=== PATIENT | male | born 1955 | race Caucasian/White ===

== ENCOUNTER 2017-03-03 20:30 | Emergency (ER) | payer OTHER, MEDICARE ==
[~2017-03-03] VITALS: Ht 175.3 cm; Wt 111.1 kg
[~2017-03-03 20:30] MED LIST: BRVIN INH; BUDE0.253 INH; DOXA8TAB2 PO; ESOM20CA PO; FLUT0.15; GABA600T PO; HYDR-3983 PO; MOME100A INH; MONT1TAB3 PO; SERT50TA PO; ZOLP5TAB PO
[2017-03-03 20:36] VITALS: TEMP 36.7; Ht 175.3 cm; Wt 111.1 kg
[2017-03-03] MEDS ORDERED: SODIUM CHLORIDE 0.9% 1000ML 1,000 ML IV STA (21:13)
--- NOTE | 2017-03-03 21:15 | EMERGENCY ROOM VISIT NOTE ---
History Report prepared by Dewayne: Jigar Sauer Under the Supervision of: Dr. Kendrick Jon M.D. First contact with patient: 20:41 Chief Complaint: FLANK PAIN Stated Complaint: PAIN IN R SIDE History of Present Illness The patient is a 62 year old male who presents to the Emergency Room with complaints of bilateral flank pain that began 1 month ago. He states that this pain is intermittently sharp and ache-like. At its worst, the pain is an 8/10 in severity. He says that this pain happens 10 times a day and is worse when he eats. The pain radiates to the right and left upper quadrant of his abdomen as well. The only thing that has helped his pain is Vicodin. He has also been having diarrhea and constipation during this month as well. He denies any calf pain, hematemesis, hematuria, hematochezia, or abnormal urinary symptoms. He was prescribed Erythromycin two days ago secondary to a lung infection. He had a normal chest x-ray on this day as well. He receives 120 [place] once a month. His last fill was on February 08, 2017. Source of History: patient Onset: 1 month ago Position: back (bilateral flank) Symptom Intensity: 8/10 Quality: ache, sharp Timing: intermittent Modifying Factors (Worsening): eating Modifying Factors (Relieving): other (Vicodin) Associated Symptoms: + abdominal pain (Bilateral upper quadrant), + diarrhea , No hematochezia, No melena, No urinary symptoms Review of Systems See HPI for pertinent positives & negatives. A total of 10 systems reviewed and were otherwise negative. Past Medical & Surgical Medical Problems: (1) Arthritis (2) Black lung (3) COPD (chronic obstructive pulmonary disease) (4) HTN (hypertension) Family History Patient reports no known family medical history. Social History Smoking Status: Former Smoker Alcohol Use: other Marital Status: Housing Status: lives alone Occupation Status: disabled Current/Historical Medications Scheduled Doxazosin Mesylate (Cardura), 8 MG PO DAILY Esomeprazole Magnesium (Nexium), 20 MG PO DAILY Gabapentin (Neurontin), 600 MG PO TID Mometasone Furoate-Formoterol (Dulera 100/5 Mcg), 2 PUFFS INH BID Zolpidem Tartrate (Ambien), 5 MG PO HS Scheduled PRN Hydrocodone/Acetaminophen 7.5MG/325MG ([place] 7.5MG/325MG), 1 TAB PO Q6H PRN for Pain Allergies Coded Allergies: Amoxicillin (Verified Allergy, Unknown, ITCHING, 09/07/15) Clarithromycin (Verified Allergy, Unknown, ITCHING, 09/07/15) Homatropine (Verified Allergy, Unknown, ITCHING, 09/07/15) Hydrocodone (Verified Allergy, Unknown, ITCHING, 09/07/15) Morphine (Verified Allergy, Unknown, ITCHING, 09/07/15) Penicillins (Verified Allergy, Unknown, ., 09/07/15) Physical Exam Vital Signs Date Time Temp Pulse Resp B/P Pulse Ox O2 Delivery O2 Flow Rate FiO2 03/03/17 23:30 76 18 117/86 94 03/03/17 22:24 75 20 130/85 95 Room Air 03/03/17 20:36 36.7 97 19 138/76 93 Room Air Physical Exam GENERAL: Patient is uncomfortable appearing and in mild acute distress. HEENT: No acute trauma, normocephalic atraumatic, mucous membranes moist, no nasal congestion, no scleral icterus. NECK: No stridor, no adenopathy, no meningismus, trachea is midline. LUNGS: No dyspnea. Clear to auscultation and equal bilaterally. No wheeze, no rhonchi. HEART: Regular rate and rhythm. No murmurs, rubs, gallops appreciated. ABDOMEN: Soft, tenderness to palpation of the RUQ, bowel sounds positive, no masses appreciated, no peritonitis. BACK: No midline tenderness, no CVA tenderness EXTREMITIES: Normal motion all extremities, no cyanosis, no edema. NEUROLOGIC: Alert and oriented, no acute motor or sensory deficits, no focal weakness, cranial nerves grossly intact. SKIN: No rash, no jaundice, no diaphoresis. Medical Decision & Procedures ER Provider Diagnostic Interpretation: Radiology results and stated below per my review and radiologist interpretation: ABDOMEN AND PELVIS CT WITH IV CONTRAST CT DOSE: 1084.98 mGy.cm HISTORY: RUQ abdominal pain TECHNIQUE: Multiaxial CT images of the abdomen and pelvis were performed following the use of intravenous contrast. COMPARISON STUDY: None. FINDINGS: Patchy densities within the bilateral lower lobes posteriorly. No pneumoperitoneum. No pneumatosis. Bilateral L5 spondylolysis. No fractures within the visualized osseous structures. Small fat-containing umbilical hernia. The liver, gallbladder, spleen, adrenal glands, kidneys, and pancreas are unremarkable. No retroperitoneal lymphadenopathy. Normal bladder. No bowel wall thickening or obstruction. Colonic diverticulosis. Normal appendix. IMPRESSION: 1. No bowel wall thickening or obstruction. 2. Normal appendix. 3. No hydronephrosis or renal stones. 4. Patchy densities within the bilateral lower lobes posteriorly. These are nonspecific but favor atelectasis rather than pneumonia. 5. Small fat-containing umbilical hernia. Electronically signed by: Carter Rayo M.D. 03/03/2017 11:00 PM Dictated Date/Time: 03/03/2017 10:47 PM Laboratory Results 03/03/17 21:15 Red Blood Count 4.82, Mean Corpuscular Volume 90.5, Mean Corpuscular Hemoglobin 31.3, Mean Corpuscular Hemoglobin Concent 34.6, Mean Platelet Volume 10.0, Neutrophils (%) (Auto) 59.8, Lymphocytes (%) (Auto) 31.5, Monocytes (%) (Auto) 7.0, Eosinophils (%) (Auto) 1.1, Basophils (%) (Auto) 0.3, Neutrophils # (Auto) 6.96, Lymphocytes # (Auto) 3.67, Monocytes # (Auto) 0.81, Eosinophils # (Auto) 0.13, Basophils # (Auto) 0.03 03/03/17 21:15 Test 03/03/17 21:15 03/03/17 22:15 White Blood Count 11.64 K/uL (4.8-10.8) Red Blood Count 4.82 M/uL (4.7-6.1) Hemoglobin 15.1 g/dL (14.0-18.0) Hematocrit 43.6 % (42-52) Mean Corpuscular Volume 90.5 fL (80-100) Mean Corpuscular Hemoglobin 31.3 pg (25-34) Mean Corpuscular Hemoglobin Concent 34.6 g/dl (32-36) Platelet Count 275 K/uL (130-400) Mean Platelet Volume 10.0 fL (7.4-10.4) Neutrophils (%) (Auto) 59.8 % Lymphocytes (%) (Auto) 31.5 % Monocytes (%) (Auto) 7.0 % Eosinophils (%) (Auto) 1.1 % Basophils (%) (Auto) 0.3 % Neutrophils # (Auto) 6.96 K/uL (1.4-6.5) Lymphocytes # (Auto) 3.67 K/uL (1.2-3.4) Monocytes # (Auto) 0.81 K/uL (0.11-0.59) Eosinophils # (Auto) 0.13 K/uL (0-0.5) Basophils # (Auto) 0.03 K/uL (0-0.2) RDW Standard Deviation 46.8 fL (36.4-46.3) RDW Coefficient of Variation 14.2 % (11.5-14.5) Immature Granulocyte % (Auto) 0.3 % Immature Granulocyte # (Auto) 0.04 K/uL (0.00-0.02) Anion Gap 9.0 mmol/L (3-11) Est Creatinine Clear Calc Drug Dose 83.4 ml/min Estimated GFR () 81.8 Estimated GFR (Non- 70.6 BUN/Creatinine Ratio 16.9 (10-20) Calcium Level 8.4 mg/dl (8.5-10.1) Total Bilirubin 0.2 mg/dl (0.2-1) Direct Bilirubin mg/dl (0-0.2) Aspartate Amino Transf (AST/SGOT) 15 U/L (15-37) Alanine Aminotransferase (ALT/SGPT) 29 U/L (12-78) Alkaline Phosphatase 136 U/L (45-117) Total Protein 6.7 gm/dl (6.4-8.2) Albumin 3.7 gm/dl (3.4-5.0) Lipase 141 U/L (73-393) Chemistry Specimen Hemolysis Urine Color YELLOW Urine Appearance CLEAR (CLEAR) Urine pH 5.5 (4.5-7.5) Urine Specific [place] 1.018 (1.000-1.030) Urine Protein NEG (NEG) Urine Glucose (UA) NEG (NEG) Urine Ketones NEG (NEG) Urine Occult Blood 1+ (NEG) Urine Nitrite NEG (NEG) Urine Bilirubin NEG (NEG) Urine Urobilinogen NEG (NEG) Urine Leukocyte Esterase NEG (NEG) Urine WBC (Auto) 0 /hpf (0-5) Urine RBC (Auto) 0-4 /hpf (0-4) Urine Hyaline Casts (Auto) 0 /lpf (0-5) Urine Epithelial Cells (Auto) 0-5 /lpf (0-5) Urine Bacteria (Auto) NEG (NEG) Laboratory results as reviewed by me. Medications Administered Medications (Trade) Dose Ordered Sig/Betzaida Route Start Time Stop Time Status Last Admin Dose Admin Sodium Chloride (Nss 1000ml) 1,000 ml @ 999 mls/hr Q1H1M STAT IV 03/03/17 21:13 03/03/17 22:13 DC 03/03/17 21:27 999 MLS/HR Miscellaneous Medication (Gi Cocktail) 24 ml NOW STAT PO 03/03/17 23:15 03/03/17 23:17 DC 03/03/17 23:15 24 ML Ranitidine HCl (zANTac SYRUP) 150 mg NOW ONCE PO 03/03/17 23:15 03/03/17 23:17 DC 03/03/17 23:22 150 MG ED Course 2040: The patient was evaluated in room B2. A complete history and physical exam was performed. 2112: Ordered Sodium Chloride 1000 ml @ 999 mls/hr IV 5: Ordered Ranitidine HCl 150 mg PO, GI Cocktail 24 ml PO 2316: The patient informed me that he was prescribed Prednisone two weeks ago and Naproxen recently when his pain started. He also notes some redness to his stool, but he does not think it is blood. I offered to do a rectal exam to check , and he declined. I also offered to evaluate him as an inpatient, and he declined. He informed me that he drinks large amounts of mineral oil every day. 2319: I discussed with the patient that he should use omeprazole twice daily for the next week, and to follow up with PCP. 2325: Ordered Lidocaine HCl 20 ml .ROUTE, Maalox Susp 30 ml .ROUTE 2328: Reevaluated the patient. Discussed results and discharge instructions: He verbalized understanding and agreement. The patient is ready for discharge. Medical Decision Differential: Cholecystitis, Gallbladder disfunction, Hepatic Disfunction, Gastritis/PUD, Pancreatitis, ACS, Aortic Pathology, amongst other pathologies entertained. 62 yr old male with epigastric abdominal pain that radiates to RUQ and sometimes LUQ over alst few weeks. Started after prednisone doses and starting naproxen. Notes history of gastric issues in past. CT abdo done given persistent symptoms and was unremarkable. No evidence of infection by work-up. Admits red stools though does no allow rectal exam. Suspect he has ulcer though with normal BP and normal HgB I do not feel I have to make him stay vs AMA. He states he will call PCP and follow up as soon as possible to discuss further options. He is on prilosec thus advised doing BID for a week. Discussed he can always return if worsening or other concerns. Stable at discharge. Impression Primary Impression: Epigastric abdominal pain Scribe Attestation The scribe's documentation has been prepared under my direction and personally reviewed by me in its entirety. I confirm that the note above accurately reflects all work, treatment, procedures, and medical decision making performed by me. Departure Information Dispostion Home / Self-Care Referrals Shannan Ventura M.D. (PCP) Forms HOME CARE DOCUMENTATION FORM, IMPORTANT VISIT INFORMATION Patient Instructions ED Epigastric Pain [facility] Additional Instructions Please follow up with your primary care provider in the next 24-48 hours to discuss further testing: HIDA scan, Endoscopy, Colonoscopy, etc.
[2017-03-03 21:26] LABS: BASO % 0.3 %; BASO ABS # 0.03 K/uL (0-0.2); COMPLETE YES; EOS % 1.1 %; HEMATOCRIT 43.6 % (42-52); IG% 0.3 %; LYMPH % 31.5 %; LYMPH ABS # 3.67 K/uL (1.2-3.4); MEAN CELL VOLUME 90.5 fL (80-100); MEAN CORPUSCULAR HEMOGLOBIN 31.3 pg (25-34); MEAN CORPUSCULAR HGB CONC 34.6 g/dl (32-36); NEUT % 59.8 %; PLATELET COUNT 275 K/uL (130-400); RED BLOOD COUNT 4.82 M/uL (4.7-6.1); WHITE BLOOD COUNT 11.64 K/uL (4.8-10.8)
[2017-03-03] MEDS ORDERED: OPTIRAY 320 IV PRN (21:30)
[2017-03-03 22:13] LABS: ALKALINE PHOSPHATASE 136 U/L (45-117); ALT/SGPT 29 U/L (12-78); AST/SGOT 15 U/L (15-37); BLOOD UREA NITROGEN 19 mg/dl (7-18); BUN/CREATININE RATIO 16.9 (10-20); CALCIUM 8.4 mg/dl (8.5-10.1); CARBON DIOXIDE 27 mmol/L (21-32); CHLORIDE 107 mmol/L (98-107); GLUCOSE 145 mg/dl (70-99); POTASSIUM 3.9 mmol/L (3.5-5.1); SODIUM 143 mmol/L (136-145)
[2017-03-03 22:45] LABS: URINE APPEARANCE CLEAR (CLEAR); URINE BILIRUBIN NEG (NEG); URINE COLOR YELLOW; URINE EPITHELIAL CELL AUTO 0-5 /lpf (0-5); URINE NITRITE NEG (NEG); URINE PH 5.5 (4.5-7.5); URINE SPECIFIC GRAVITY 1.018 (1.000-1.030); UROBILINOGEN NEG (NEG); ZZUR CULT IF INDIC CLEAN CATCH NO
[2017-03-03 22:48] LABS: MANUAL MICROSCOPIC REQUIRED? NO; REVIEW REQ? NO
--- NOTE | 2017-03-03 23:02 | DIAGNOSTIC IMAGING REPORT ---
ABDOMEN AND PELVIS CT WITH IV CONTRAST CT DOSE: 1084.98 mGy.cm HISTORY: RUQ abdominal pain TECHNIQUE: Multiaxial CT images of the abdomen and pelvis were performed following the use of intravenous contrast. COMPARISON STUDY: None. FINDINGS: Patchy densities within the bilateral lower lobes posteriorly. No pneumoperitoneum. No pneumatosis. Bilateral L5 spondylolysis. No fractures within the visualized osseous structures. Small fat-containing umbilical hernia. The liver, gallbladder, spleen, adrenal glands, kidneys, and pancreas are unremarkable. No retroperitoneal lymphadenopathy. Normal bladder. No bowel wall thickening or obstruction. Colonic diverticulosis. Normal appendix. IMPRESSION: 1. No bowel wall thickening or obstruction. 2. Normal appendix. 3. No hydronephrosis or renal stones. 4. Patchy densities within the bilateral lower lobes posteriorly. These are nonspecific but favor atelectasis rather than pneumonia. 5. Small fat-containing umbilical hernia. Electronically signed by: Carter Rayo M.D. 03/03/2017 11:00 PM Dictated Date/Time: 03/03/2017 10:47 PM
[2017-03-03] MEDS ORDERED: RANITIDINE HCL SYRUP 150 MG/10 ML UDC PO ONE (23:15)
[2017-03-03] MEDS ORDERED: GI COCKTAIL PO STA (23:15)
[2017-03-03] MEDS ORDERED: ALUMINUM/MAGNESIUM SUSP 30 ML UDC ONE (23:25)
[2017-03-03] MEDS ORDERED: LIDOCAINE HCL 2% VISC SOLN 20 ML UDC ONE (23:25)
[2017-03-03 23:30] VITALS: BP 117/86; PULSE 76; O2SAT 94
[2017-04-09] MEDS ORDERED: DOXY100C76 PO (15:21)
[2017-04-09] MEDS ORDERED: ARFO15NE INH (15:21)
[2017-04-09] MEDS ORDERED: ALBUAER INH (15:21)
[2017-04-09] MEDS ORDERED: OMEP40CA41 PO (15:21)
[2017-04-09] MEDS ORDERED: PLMINSR5 INH (15:21)
== END 2017-03-03 23:32 | disposition home or self-care (01) ==
LOC: C.EDB 20:30
DX: R10.13 Epigastric pain (principal); J44.9 Chronic obstructive pulmonary disease, unspecified; I10 Essential (primary) hypertension; Z87.891 Personal history of nicotine dependence; Z88.0 Allergy status to penicillin; Z88.1 Allergy status to other antibiotic agents; Z88.5 Allergy status to narcotic agent; R19.7 Diarrhea, unspecified

== ENCOUNTER → 2017-04-11 | Day surgery (SDC) | payer OTHER, MEDICARE ==
[2017-04-09 15:07] VITALS: Ht 175.3 cm; Wt 111.4 kg
[~2017-04-11] VITALS: Ht 175.3 cm; Wt 111.4 kg
[~2017-04-11] MED LIST changes: +ALBUAER INH; +ARFO15NE INH; -BRVIN INH; -BUDE0.253 INH; +DOXY100C76 PO; -ESOM20CA PO; -FLUT0.15; +KETAMINE HCL INJ 50 MG/ML 10 ML VIAL ONE; +LIDOCAINE HCL 2% 2 ML VIAL (20MG/ML) ONE; +MIDAZOLAM HCL 1 MG/ML 2ML VIAL ONE; -MONT1TAB3 PO; +OMEP40CA41 PO; +PLMINSR5 INH; +PROPOFOL IV EMULSION 10 MG/ML 20 ML VIAL IV ONE; -SERT50TA PO; +SODIUM CHLORIDE 0.9% 500ML 500 ML IV ONE
[2017-04-11 10:26] VITALS: TEMP 36.9
--- NOTE | 2017-04-11 10:54 | Endo History and Physical ---
History & Physical Date of Service: April 11, 2017. Chief Complaint: Diarrhea, Constipation Referring Physician: Shannan Ventura History of Present Illness Indigestion, abdominal pain, alternating diarrhea and constipation in patient with a history of polyps. Past Surgical History Hx Cardiac Surgery: No Hx Internal Defibrillator: No Hx Pacemaker: No Hx Abdominal Surgery: No Hx of Implantable Prosthesis: No Hx Post-Op Nausea and Vomiting: No Hx Cancer Surgery: No Hx Thoracic Surgery: No Hx Orthopedic: Yes (RT KNEE SX, RT ARM CLOSED REDUCTION) Hx Urinary Tract Surgery: No Family History IBD Social History Smoking Status: Former Smoker Hx Substance Use: Yes (SEE MED REC) Hx Alcohol Use: Yes (RARELY) Allergies Coded Allergies: Amoxicillin (Verified Allergy, Unknown, ITCHING, 04/09/17) Clarithromycin (Verified Allergy, Unknown, ITCHING, 04/09/17) Morphine (Verified Allergy, Unknown, ITCHING, 04/09/17) Penicillins (Verified Allergy, Unknown, RASH, 04/09/17) Current Medications Reported Home Medications Medications Dose Route/Sig Max Daily Dose Days Date Category Pulmicort Respules 0.5MG/2ML (Budesonide) 0.5 Mg/2 Ml Nebu 2 Ml INH BID PRN 04/09/17 Reported Brovana (Arformoterol Tartrate) 15 Mcg/2 Ml Neb 15 Mcg INH BID PRN 04/09/17 Reported Proventil Hfa (Albuterol Sulfate) 108 Mcg/Act Aer 2 Puff INH Q4H PRN 04/09/17 Reported Prilosec (Omeprazole) 40 Mg Cap 40 Mg PO QAM 04/09/17 Reported Monodox (Doxycycline Monohydrate) 100 Mg Cap 100 Mg PO QAM 04/09/17 Reported Ambien (Zolpidem Tartrate) 5 Mg Tab 5 Mg PO HS PRN 09/07/15 Reported [place] 7.5MG/325MG (Acetaminophen/Hydrocodone Bitart) Tab 1 Tab PO Q6H PRN 03/16/15 Reported Dulera 100/5 Mcg (Mometasone Furoate-Formoterol) 1 Aer Aer 2 Puffs INH BID 12/07/13 Reported Neurontin (Gabapentin) 600 Mg Tab 600 Mg PO TID 12/07/13 Reported Cardura (Doxazosin Mesylate) 8 Mg Tab 8 Mg PO HS 1/13/14 Reported Vital Signs Weight (Kilograms): 111.36 Height (Feet): 5 Height (Inches): 9 Date Time Temp Pulse Resp B/P Pulse Ox O2 Delivery O2 Flow Rate FiO2 04/11/17 10:26 36.9 79 18 151/80 96 Room Air Physical Exam General Appearance: WD/WN, no apparent distress, + obese Respiratory/Chest: Auscultation: breath sounds normal, no wheezing, no rales/crackles Cardiovascular: Heart Auscultation: RRR, no murmurs Abdomen: Inspection & Palpation: soft, no tenderness, guarding & rebound Assessment and Plan EGD and colonoscopy today.
--- NOTE | 2017-04-11 11:16 | GI REPORT ---
Procedure Date: 04/11/2017 10:20 AM Procedure: Upper GI endoscopy Indications: Abdominal pain, Diarrhea Medicines: Monitored Anesthesia Care Complications: No immediate complications. Estimated blood loss: None. Estimated Blood Loss: Estimated blood loss: none. Procedure: Pre-Anesthesia Assessment: - Prior to the procedure, a History and Physical was performed, and patient medications, allergies and sensitivities were reviewed. The patient's tolerance of previous anesthesia was reviewed. - ASA Grade Assessment: III - A patient with severe systemic disease. After obtaining informed consent, the endoscope was passed under direct vision. Throughout the procedure, the patient's blood pressure, pulse, and oxygen saturations were monitored continuously. The scope was introduced through the mouth, and advanced to the third part of the duodenum. Small bowel enteroscopy was deemed necessary. The upper GI endoscopy was accomplished with ease. The patient tolerated the procedure well. Findings: The upper third of the esophagus, middle third of the esophagus and lower third of the esophagus were normal. The Z-line was regular and was found 40 cm from the incisors. A small hiatus hernia was present. The entire examined stomach was normal. Biopsies were taken with a cold forceps for Helicobacter pylori testing. The examined duodenum was normal. Biopsies for histology were taken with a cold forceps for evaluation of celiac disease. Verification of patient identification for the specimens was done by the physician and nurse using the patient's name, date and medical record number. Impression: - Normal upper third of esophagus, middle third of esophagus and lower third of esophagus. - Z-line regular, 40 cm from the incisors. - Small hiatus hernia. - Normal stomach. Biopsied. - Normal examined duodenum. Biopsied. Recommendation: - Await pathology results. - Perform a colonoscopy today. Kiran Garcia M.D. Kiran Garcia MD 04/11/2017 11:15:57 AM This report has been signed electronically. Note Initiated On: 04/11/2017 10:20 AM I attest to the content of the Intraoperative Record and orders documented therein, exceptions below
--- NOTE | 2017-04-11 11:36 | GI REPORT ---
Procedure Date: 04/11/2017 10:20 AM Procedure: Colonoscopy Indications: High risk colon cancer surveillance: Personal history of colonic polyps, Incidental - Chronic diarrhea Medicines: Monitored Anesthesia Care Complications: No immediate complications. Estimated blood loss: None. Estimated Blood Loss: Estimated blood loss: none. Procedure: Pre-Anesthesia Assessment: - Prior to the procedure, a History and Physical was performed, and patient medications, allergies and sensitivities were reviewed. The patient's tolerance of previous anesthesia was reviewed. - ASA Grade Assessment: III - A patient with severe systemic disease. After I obtained informed consent, the scope was passed under direct vision. Throughout the procedure, the patient's blood pressure, pulse, and oxygen saturations were monitored continuously. The On-site loaner was introduced through the anus and advanced to the terminal ileum, with identification of the appendiceal orifice and IC valve. The colonoscopy was performed with ease. The patient tolerated the procedure well. The quality of the bowel preparation was good. The bowel preparation used was split dose MIralax. Findings: Multiple diverticula were found in the sigmoid colon. Normal mucosa was found in the entire colon. Biopsies for histology were taken with a cold forceps from the entire colon for evaluation of microscopic colitis. Verification of patient identification for the specimen was done by the physician and nurse using the patient's name, date and medical record number. Impression: - Diverticulosis in the sigmoid colon. - Normal mucosa in the entire examined colon. Biopsied. - The colon was otherwise normal to the terminal ileum with retroflexed views of the colon and terminal ileum. Recommendation: - Await pathology results. - Repeat colonoscopy in 5 years for screening purposes. - Discharge patient to home (with escort). Kiran Garcia M.D. Kiran Garcia MD 04/11/2017 11:36:26 AM This report has been signed electronically. Note Initiated On: 04/11/2017 10:20 AM I attest to the content of the Intraoperative Record and orders documented therein, exceptions below
--- NOTE | 2017-04-11 11:43 | Discharge Instructions ---
Endoscopy Patient Instructions Date / Procedure(s) Performed April 11, 2017. Colonoscopy, EGD Allergy Information Coded Allergies: Amoxicillin (Verified Allergy, Unknown, ITCHING, 04/09/17) Clarithromycin (Verified Allergy, Unknown, ITCHING, 04/09/17) Morphine (Verified Allergy, Unknown, ITCHING, 04/09/17) Penicillins (Verified Allergy, Unknown, RASH, 04/09/17) Discharge Date / Findings April 11, 2017. Diverticulosis, small hiatal hernia. Biopsies from stomach, duodenum and colon pending. Medication Instructions Restart Stopped Medication(s): Restart all medications today. Repeat colonoscopy in five years. Provider Instructions Activity Restrictions - No exercising or heavy lifting for 24 hours. - Do not drink alcohol the day of the procedure. - Do not drive a car or operate machinery until the day after the procedure. - Do not make any important decisions or sign important papers in 24 hours after the procedure. Following Day: - Return to full activity which may include returning to work/school. Diet Start your diet with liquids and light foods (jello, soup, juice, toast). Then eat your usual diet if not nauseated. Treatment For Common After Affects For mild abdominal pain, bloating, or excessive gas: - Rest - Eat lightly - Lie on right side Follow-Up Information Follow-up with Shannan Ventura as scheduled Anesthesia Information What You Should Know You have had a procedure that required some medicine to reduce anxiety and discomfort. This treatment is called moderate sedation. After receiving the treatment, you may be sleepy, but you will be able to breathe on your own. The effects of the treatment may last for several hours. Follow these instructions along with Activity/Diet recommendations noted above: * Do NOT do anything where dizziness or clumsiness would be dangerous. * Rest quietly at home today, then you can be up and about tomorrow. * Have a responsible person stay with you the rest of today. * You may have had an I.V. today. If so, you may take the dressing off later today. Recommendations Call your doctor if: * Trouble breathing * Continuous vomiting for more than 24 hours * Temperature above 101 degrees * Severe abdominal pain or bloating * Pain not relieved by pain medicine ordered * There is increased drainage or redness from any incision * A large amount of rectal bleeding greater than 2-3 tablespoons. (If you had a polyp/s removed or have hemorrhoids, a small amount of blood - from the rectum is to be expected.) * You have any unanswered questions or concerns. IN THE EVENT OF A SERIOUS EMERGENCY, GO TO THE NEAREST EMERGENCY ROOM Your discharge instructions were prepared by provider Kiran Garcia. Patient Instructions Signature Page Abhishek Flower Patient (or Guardian) Signature/Date: I have read and understand the instructions given to me by my caregivers. Caregiver/RN/Doctor Signature/Date: The above-named patient and/or guardian has received patient instructions on this date. + Original Patient Signature Page (only) stays with chart. Please make copy for patient.
--- NOTE | 2017-04-11 12:08 | Anesthesiology Progress Note ---
Anesthesia Post Op Note Date & Time April 11, 2017 at 12:07 Vital Signs Pain Intensity: 0 Vital Signs Past 12 Hours Date Time Temp Pulse Resp B/P Pulse Ox O2 Delivery O2 Flow Rate FiO2 04/11/17 11:55 67 18 127/73 96 Room Air 04/11/17 11:40 74 18 126/90 95 Room Air 04/11/17 10:26 36.9 79 18 151/80 96 Room Air Notes Mental Status: alert / awake / arousable, participated in evaluation Pt Amnestic to Procedure: Yes Nausea / Vomiting: adequately controlled Pain: adequately controlled Airway Patency, RR, SpO2: stable & adequate BP & HR: stable & adequate Hydration State: stable & adequate Anesthetic Complications: no major complications apparent
[2017-04-11 12:10] VITALS: BP 126/90; PULSE 73; O2SAT 95
== END | disposition home or self-care (01) ==
LOC: C.GI 09:24
PROVIDERS: ATTEND Internal Medicine Gastroenterology
DX: K57.30 Diverticulosis of large intestine without perforation or abscess without bleeding (principal); Z86.010 Personal history of colon polyps; R19.7 Diarrhea, unspecified; K44.9 Diaphragmatic hernia without obstruction or gangrene; R10.9 Unspecified abdominal pain; K59.00 Constipation, unspecified; Z87.891 Personal history of nicotine dependence; Z79.899 Other long term (current) drug therapy; Z83.79 Family history of other diseases of the digestive system

== ENCOUNTER 2020-06-13 20:52 | Inpatient (IN) ==
--- OUTSIDE RECORDS SUMMARY | 2020-06-13 20:54 | External Medical Summary | Continuity of Care Document ---
:1955 Author Name Danii Rodriguez, Provider Address Unavailable Unavailable , Care Team Providers Name Role Phone Clifton Rodriguez, Provider Unavailable [email or web address] Unavailable Unavailable Problems Lumbar Disc Degeneration L4 - L5 (722.52) Dyslipidemia (272.4) (E78.5) Esophageal reflux (530.81) (K21.9) Lumbago (724.2) (M54.5) Lumbar canal stenosis (724.02) (M48.061) Depression (311) (F32.9) Chronic obstructive pulmonary disease (496) (J44.9) Peptic ulcer (533.90) (K27.9) Lower back pain (724.2) (M54.5) Primary Hypogonadism (257.2) Allergies and Adverse Reactions Amoxil TABS (Allergy) Bactrim TABS (Allergy) Morphine Derivatives (Allergy) predniSONE TABS (Allergy) Medications Hydrocodone-Acetaminophen CAPS Refills: 0 Prevacid 30 MG Oral Capsule Delayed Release; TAKE 1 CAPSULE DAILY. Refills: 0 FLUoxetine HCl - 20 MG Oral Capsule; TAKE 1 CAPSULE DAILY. Refills: 0 AndroGel 50 MG/5GM (1%) Transdermal Gel; APPLY DAILY DIRE CTED. Refills: 0 Viagra TABS; TAKE DIRECTED. Refills: 0 Simvastatin 40 MG Oral Tablet; TAKE 1 TABLET DAILY AT BEDTIM E. Refills: 0 Meloxicam 15 MG Oral Tablet; Take 1 tablet daily Refills: 0 Procedures History of Cardiac Cath Procedure Outcome: Successful Status: Completed Immunizations Immunizations not documented Family History Mother Family history of Diabetes Mellitus (V18.0) Status: Active Family history of Hypertension (V17.49) Status: Active Family history of Family Health Status Of Mother - Status: Active Father Family history of Family Health Status Of Father - Alive Sta tus: Active Family history of Hypertension (V17.49) Status: Active Family history of Diabetes Mellitus (V18.0) Status: Active Family history of Arthritis (V17.7) Status: Active Social History - Smoking Status Tobacco smoking consumption unknown Plan of Treatment Planned Observations Planned Goals not documented Results No Known Results Results not documented
--- OUTSIDE RECORDS SUMMARY | 2020-06-13 20:55 | External Medical Summary | Continuity of Care Document ---
:1955 Author Name Danii Rodriguez, Provider Address Unavailable Unavailable , Care Team Providers Name Role Phone Clifton Rodriguez, Provider Unavailable [email or web address] Unavailable Unavailable Problems Lumbar Disc Degeneration L4 - L5 (722.52) Primary Hypogonadism (257.2) Lower back pain (724.2) (M54.5) Peptic ulcer (533.90) (K27.9) Chronic obstructive pulmonary disease (496) (J44.9) Depression (311) (F32.9) Lumbar canal stenosis (724.02) (M48.061) Lumbago (724.2) (M54.5) Esophageal reflux (530.81) (K21.9) Dyslipidemia (272.4) (E78.5) Allergies and Adverse Reactions Amoxil TABS (Allergy) Bactrim TABS (Allergy) Morphine Derivatives (Allergy) predniSONE TABS (Allergy) Medications Meloxicam 15 MG Oral Tablet; Take 1 tablet daily Refills: 0 Hydrocodone-Acetaminophen CAPS Refills: 0 Prevacid 30 MG Oral Capsule Delayed Release; TAKE 1 CAPSULE DAILY. Refills: 0 FLUoxetine HCl - 20 MG Oral Capsule; TAKE 1 CAPSULE DAILY. Refills: 0 AndroGel 50 MG/5GM (1%) Transdermal Gel; APPLY DAILY DIRE CTED. Refills: 0 Viagra TABS; TAKE DIRECTED. Refills: 0 Simvastatin 40 MG Oral Tablet; TAKE 1 TABLET DAILY AT BEDTIM E. Refills: 0 Procedures History of Cardiac Cath [...]
[2020-06-13] MEDS ORDERED: ONDANSETRON 4 MG OD TAB PO STA (21:31)
[2020-06-13 22:30] LABS: Basophils # (auto) 0.02 K/uL (0-0.2); Basophils % (auto) 0.1 %; Eosinophils # (auto) 0.02 K/uL (0-0.5); Eosinophils % (auto) 0.1 %; Hematocrit (blood only) 51.4 % (42-52); Hemoglobin 16.9 g/dL (14.0-18.0); Immature Granulocytes # (auto) 0.11 K/uL (0.00-0.02); Immature Granulocytes % (auto) 0.5 %; Lymphocytes # (auto) 1.88 K/uL (1.2-3.4); Lymphocytes % (auto) 8.4 %; Mean Corpuscular Hemoglobin 31.6 pg (25-34); Mean Corpuscular Hgb Conc 32.9 g/dL (32-36); Mean Corpuscular Volume 96.1 fL (80-100); Mean Platelet Volume 10.4 fL (7.4-10.4); Monocytes # (auto) 1.34 K/uL (0.11-0.59); Neutrophils % (auto) 84.9 %; Platelet Count 271 K/uL (130-400); RDW Coefficient of Variation 13.9 % (11.5-14.5); RDW Standard Deviation 48.7 fL (36.4-46.3); Red Blood Count 5.35 M/uL (4.7-6.1); White Blood Count 22.27 K/uL (4.8-10.8)
[2020-06-13] MEDS ORDERED: SODIUM CHLORIDE 0.9% 500 ML IV SCH (22:30)
[2020-06-13] MEDS ORDERED: ONDANSETRON INJ 2 MG/ML 2 ML VIAL IV STA (22:32)
[2020-06-13 22:37] LABS: Appearance Urine Clear (Clear); Bacteria Urine Automated Negative (Negative); Blood Urine Trace (Negative); Color Urine Dark Yellow; Glucose Urine UA Negative (Negative); Ketones Urine 2+ (Negative); Leukocyte Esterase Urine Negative (Negative); Nitrite Urine Negative (Negative); Protein Urine 1+ (Negative); Urobilinogen Urine Negative (Negative)
[2020-06-13 22:40] LABS: Bilirubin Urine Negative (Negative); Ictotest Urine Negative (Negative)
[2020-06-13] MEDS: HYDROmorphone INJ 0.5 MG/0.5 ML SYR IV PRN ×2 (22:44→23:49)
[2020-06-13 22:48] LABS: Albumin Level 4.3 gm/dl (3.4-5.0); BUN Creatinine Ratio 10.5 (10-20); Calcium 10.3 mg/dl (8.5-10.1); Creatinine Clr Calc Pharmacy 66.7 ml/min; Est GFR (African American) 63.7; Est GFR (Non-African American) 54.9; Potassium 3.8 mmol/L (3.5-5.1)
[2020-06-13 22:51] LABS: Albumin Globulin Ratio 1.2 (0.9-2); Bilirubin,Total 0.7 mg/dl (0.2-1); Globulin 3.6 gm/dl (2.5-4.0); Total Protein 7.9 gm/dl (6.4-8.2)
[2020-06-13] MEDS ORDERED: CANNULA ONE (23:48)
[2020-06-14] MEDS ORDERED: LACTATED RINGER'S 1,000 ML IV ONE ×2 (00:19→02:44)
--- NOTE | 2020-06-14 00:19 | Emergency Department Note ---
Impression & Plan SBO (small bowel obstruction), Nausea & vomiting, Leukocytosis ED Provider Note INFORMANT: [Patient] ED PROVIDER(S): Brock Briceno MD CHIEF COMPLAINT: Abdominal pain PLAN: Disposition: Admitted Condition: [Good] MEDICAL DECISION MAKING: Patient presented with upper abdominal pain, nausea and vomiting. He had blood work obtained. The patient was found to have a significant leukocytosis with an unremarkable chemistry panel and LFTs. He had a ECG performed which showed a normal sinus rhythm without ischemia. The patient was given Dilaudid and Zofran. He was hydrated. He felt much better and had no additional nausea or vomiting. CT imaging was performed and revealed a small bowel obstruction with a transition point in the mid abdomen. The patient was informed of the findings. He will need admission to the hospital. Attempts were made at a nasogastric tube. The patient has had several broken noses in the past and passing a nasogastric tube was not successful. Consultation was made with internal medicine and general surgery. I discussed the case with Dr. Dodd and Dr. Plasencia. The patient will be admitted by internal medicine and general surgery will consult. They were aware of the NG tube failure. Triage Nursing notes reviewed and agree them. Vital Signs: reviewed and remarkable for [no significant abnormalities] Differential diagnosis: Appendicitis, infections, diverticulitis, UTI, obstruction, mesenteric ischemia, aortic pathology, inflammatory bowel disease, renal colic, PUD, pancreatitis, biliary pathology, hernia, volvulus, constipation, as well as other pathologies. Diagnostics interpreted by me: ECG: Rate: 95 Rhythm:Normal sinus Luana:Normal QRS:Normal duration ST segements:No elevation or depression Other:No PACs or PVCs. Inferior Q waves present. Cardiac Monitoring: Cardiac monitoring ordered by me: The patient was placed on continuous cardiac monitoring and observed. It revealed a normal sinus rhythm at 90 beats per minute without ectopy or evidence of dysrhythmia. Imaging studies: CT scan of the abdomen pelvis was performed and reveals a small bowel obstruction. I refer you to the EMR for further details. Consultation(s): Internal medicine hospitalist service General surgery HPI: The patient is a 65 year old male who presents to the Emergency Room with complaints of upper abdominal pain. This started 2 days ago and is worsening. The patient also notes the following associated symptoms, nausea and vomiting that is been going on for about 2 weeks. The patient has found no relieving factors. Current pain is rated as 10/10. Pt denies LOC, headache, fevers, chills, diaphoresis, visual changes, neck pain, chest pain, breathing difficulties, back pain, melena, hematochezia, urinary symptoms, numbness, weakness, lymphadenopathy, rash, or other complaints. ROS: See above HPI for pertinent positives & negatives. A total of [10] systems reviewed and were otherwise negative. PAST MEDICAL HISTORY:[See Below] COPD, hypertension, black lung PAST SURGICAL HISTORY:[See Below] FAMILY HISTORY:[See Below] SOCIAL HISTORY:[See Below] no tobacco HOME MEDICATIONS:[See Below] ALLERGIES:[See Below] VITALS:[See Below] PHYSICAL EXAMINATION: GENERAL: Awake, alert, well-appearing, in no distress HENT: Normocephalic, atraumatic. Oropharynx unremarkable. EYES: Normal conjunctiva. Sclera non-icteric. NECK: Inspection normal. Non-tender. Supple. No nuchal rigidity. FROM. No masses. RESPIRATORY: Clear to auscultation. No wheezes. No rales. Normal respiratory effort. CARDIAC: Normal rate. Normal rhythm. No murmurs. No rubs. Extremities warm and well perfused. Pulses equal. No JVD. GI: Soft, mildly-distended. Moderate upper tenderness to palpation. No rebound or guarding. No masses. RECTAL: Deferred. MUSCULOSKELETAL: Atraumatic. Chest examination reveals no tenderness. The back is symmetrical on inspection without obvious abnormality. There is no CVA tenderness to palpation. No joint edema. LOWER EXTREMITIES: Calves are equal size bilaterally and non-tender. No edema. No discoloration. NEURO: Normal sensorium. No sensory or motor deficits noted. SKIN: No rash or jaundice noted. ED COURSE: [Critical Care:] [None] Brock Briceno MD Past Med/Surg History Social History Smoking Status: Former smoker Preferred Language: Telugu Feels Safe at Home: Yes Allergies Allergies Allergy/AdvReac Type Severity Reaction Status Date / Time amoxicillin Allergy Mild ITCHING Verified 06/13/20 22:53 clarithromycin Allergy Mild ITCHING Verified 06/13/20 22:53 morphine Allergy Mild ITCHING Verified 06/13/20 22:53 Penicillins Allergy Mild RASH Verified 06/13/20 22:53 Home Meds Home Medications Medication Instructions Recorded Confirmed aspirin 325 mg PO DAILY 06/13/20 06/13/20 atorvastatin 40 mg PO DAILY 06/13/20 06/13/20 budesonide [Pulmicort] 0.5 mg INHALATION BID PRN 06/13/20 06/13/20 doxazosin 8 mg PO HS 06/13/20 06/13/20 doxycycline monohydrate 100 mg PO QAM 06/13/20 06/13/20 hydrocodone-acetaminophen 1 tab PO Q6H PRN 06/13/20 06/13/20 meloxicam 15 mg PO DAILY 06/13/20 06/13/20 ondansetron HCl 4 mg PO DIRECTED PRN 06/13/20 06/13/20 pantoprazole 40 mg PO DAILY 06/13/20 06/13/20 Results & Data (ED) Vital Signs Vital Signs - 24 hr 06/13/20 20:54 06/13/20 22:22 06/13/20 22:24 Temperature 36.7 C Temperature Source Oral Pulse Rate 100 H 92 H 99 H Pulse Rhythm Regular Regular Pulse Strength Normal Respiratory Rate 20 18 14 Respiratory Effort / Characteristics Non-Labored Spontaneous Respiratory Depth Normal Respiratory Pattern Regular Blood Pressure 127/77 127/86 Blood Pressure Mean 93 103 Blood Pressure Position Lying Pulse Oximetry 91 91 Oxygen Delivery Method Room Air Room Air Sepsis Recent Fever Within 48 Hours No Sepsis New/Unexplained Change in Mental Status No Sepsis Action Taken by Nursing No Action Required Laboratory Data Result diagrams: 06/13/20 22:21 06/13/20 22:21 Lab Results 06/13/20 06/13/20 06/13/20 Range/Units 22:21 22:21 22:21 WBC 22.27 H (4.8-10.8) K/uL RBC 5.35 (4.7-6.1) M/uL Hgb 16.9 (14.0-18.0) g/dL Hct 51.4 (42-52) % MCV 96.1 (80-100) fL MCH 31.6 (25-34) pg MCHC 32.9 (32-36) g/dL RDW Std Deviation 48.7 H (36.4-46.3) fL RDW Coeff of Eric 13.9 (11.5-14.5) % Plt Count 271 (130-400) K/uL MPV 10.4 (7.4-10.4) fL Immature Gran % (Auto) 0.5 % Neut % (Auto) 84.9 % Lymph % (Auto) 8.4 % [place] % (Auto) 6.0 % Eos % (Auto) 0.1 % Baso % (Auto) 0.1 % Neut # (Auto) 18.90 H (1.4-6.5) K/uL Lymph # (Auto) 1.88 (1.2-3.4) K/uL [place] # (Auto) 1.34 H (0.11-0.59) K/uL Eos # (Auto) 0.02 (0-0.5) K/uL Baso # (Auto) 0.02 (0-0.2) K/uL Immature Gran # (Auto) 0.11 H (0.00-0.02) K/uL Sodium 137 (136-145) mmol/L Potassium 3.8 (3.5-5.1) mmol/L Chloride 98 (98-107) mmol/L Carbon Dioxide 32 (21-32) mmol/L Anion Gap 7.0 (3-11) BUN 14 (7-18) mg/dl Creatinine 1.33 (0.6-1.4) mg/dl Est Cr Clr Drug Dosing 66.7 ml/min Est GFR ( Amer) 63.7 Est GFR (Non-Af Amer) 54.9 BUN/Creatinine Ratio 10.5 (10-20) Glucose 170 H (70-99) mg/dl Calcium 10.3 H (8.5-10.1) mg/dl Total Bilirubin 0.7 (0.2-1) mg/dl AST 13 L (15-37) U/L ALT 26 (12-78) U/L Alkaline Phosphatase 144 H (45-117) U/L Total Protein 7.9 (6.4-8.2) gm/dl Albumin 4.3 (3.4-5.0) gm/dl Globulin 3.6 (2.5-4.0) gm/dl Albumin/Globulin Ratio 1.2 (0.9-2) Lipase 56 L (73-393) U/L Urine Color Dark Yellow Urine Appearance Clear (Clear) Urine pH 6.0 (4.5-7.5) Ur Specific [place] 1.030 (1.000-1.030) Urine Protein 1+ H (Negative) Urine Glucose (UA) Negative (Negative) Urine Ketones 2+ H (Negative) Urine Blood Trace H (Negative) Urine Nitrite Negative (Negative) Urine Bilirubin Negative (Negative) Urine Urobilinogen Negative (Negative) Ur Leukocyte Esterase Negative (Negative) Urine WBC (Auto) 1-5 (0-5) /hpf Urine RBC (Auto) 5-10 H (0-4) /hpf U Hyaline Cast (Auto) 5-10 H (0-5) /lpf U Epithel Cells (Auto) 10-20 H (0-5) /lpf Urine Bacteria (Auto) Negative (Negative) Administered Medications Hydromorphone HCl (Dilaudid) 0.5 mg IV Q15M PRN PRN Reason: Pain Stop: 06/27/20 22:31 Last Admin: 06/13/20 23:49 Dose: 0.5 mg Documented by: [id number] Admin: 06/13/20 22:44 Dose: 0.5 mg Documented by: [id number] Discontinued Medications Sodium Chloride (Nss) 500 mls @ 999 mls/hr IV .Q31M BHASKAR Stop: 06/13/20 23:00 Last Infusion: 06/13/20 23:01 Dose: 0 mls/hr Documented by: [id number] Admin: 06/13/20 22:26 Dose: 999 mls/hr Documented by: [id number] Ondansetron HCl (Zofran Odt) 4 mg PO NOW STA Stop: 06/13/20 21:32 Last Admin: 06/13/20 21:36 Dose: 4 mg Documented by: [id number] Ondansetron HCl (Zofran) 4 mg IV NOW STA Stop: 06/13/20 22:33 Last Admin: 06/13/20 22:44 Dose: 4 mg Documented by: [id number] Discharge Plan Visit Data Chief Complaint: Abdominal Pain Stated Complaint: ABD PAIN ED Provider: Brock Briceno Discharge Problem: SBO (small bowel obstruction), Nausea & vomiting, Leukocytosis Forms Stand Alone Forms: [facility] Prescriptions Prescriptions: No Action atorvastatin 40 mg tablet 40 mg PO DAILY RF: 0 aspirin 325 mg Tablet 325 mg PO DAILY RF: 0 meloxicam 15 mg tablet 15 mg PO DAILY RF: 0 ondansetron HCl 4 mg tablet 4 mg PO DIRECTED PRN (Reason: Nausea) RF: 0 doxazosin 8 mg tablet 8 mg PO HS RF: 0 doxycycline monohydrate 100 mg capsule 100 mg PO QAM RF: 0 hydrocodone-acetaminophen 7.5-325 mg tablet 1 tab PO Q6H PRN (Reason: Pain) RF: 0 pantoprazole 40 mg tablet,delayed release (DR/EC) 40 mg PO DAILY RF: 0 budesonide [Pulmicort] 0.5 mg/2 mL Suspension For Nebulization 0.5 mg INHALATION BID PRN (Reason: Shortness Of Breath Or Wheezing) RF: 0
[2020-06-14 00:48] LABS: Magnesium 1.9 mg/dl (1.8-2.4)
[2020-06-14] MEDS ORDERED: POLYETHYLENE (MIRALAX) 17 GM PACK PO STA (01:20)
--- NOTE | 2020-06-14 01:20 | History & Physical Report ---
Date of Service June 14, 2020 Assessment & Plan (1) SBO (small bowel obstruction): No prior history of abdominal surgeries. 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 if patient agreeable Surgery consult Re: SBO (ER provider attempted to get in touch with Dr. Plasencia.) Bowel regimen Judicious narcotic use ISS BG goal [id number], update hemoglobin A1c Watch out for signs of alcohol withdrawal DVT prophylaxis SCDs RE epistaxis post NGT insertion attempt (Recommend Lovenox 40 mg SQ daily epistaxis fully resolved and hemoglobin stable.) Full code Text document was generated using VSHORE voice recognition software. It may contain grammatical or spelling errors. Kindly contact undersigned for clarification of any documentation item in question. History of Present Illness Chief Complaint: Abdominal pain Primary Care Provider: Shannan Ventura MD History obtained from patient and records. 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 Patient has been having burning epigastric discomfort with nausea symptoms the last 3 months not relieved by Pepcid. Prilosec prescribed for possible GERD. Prilosec dose increased last month after PCP visit. Partial improvement in discomfort. Persistent heartburn, belching and bloating discomfort on PCP follow-up visit last week. Occasional diarrhea/constipation as per outpatient note. Prilosec switched to Protonix. GI referral contemplated if without improvement as per note. Patient noted worsening achy upper abdominal discomfort the last 2 days with nausea and emesis. No fever, no chills. Somewhat constipated. No chest pain. Usual shortness of breath. Patient consulted ER for evaluation. Unsuccessful attempts at NGT insertion for small bowel suction and CT resulted in some epistaxis. 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 Allergies Allergy/AdvReac Type Severity Reaction Status Date / Time amoxicillin Allergy Mild ITCHING Verified 06/13/20 22:53 clarithromycin Allergy Mild ITCHING Verified 06/13/20 22:53 morphine Allergy Mild ITCHING Verified 06/13/20 22:53 Penicillins Allergy Mild RASH Verified 06/13/20 22:53 Home Medications Home Medications Medication Instructions Recorded Confirmed Type aspirin 325 mg PO DAILY 06/13/20 06/13/20 History atorvastatin 40 mg PO DAILY 06/13/20 06/13/20 History budesonide [Pulmicort] 0.5 mg INHALATION BID PRN 06/13/20 06/13/20 History doxazosin 8 mg PO HS 06/13/20 06/13/20 History doxycycline monohydrate 100 mg PO QAM 06/13/20 06/13/20 History hydrocodone-acetaminophen 1 tab PO Q6H PRN 06/13/20 06/13/20 History meloxicam 15 mg PO DAILY 06/13/20 06/13/20 History ondansetron HCl 4 mg PO DIRECTED PRN 06/13/20 06/13/20 History pantoprazole 40 mg PO DAILY 06/13/20 06/13/20 History Past Med/Surg History Social History Smoking Status: Former smoker Do You Dip or Chew Tobacco: Yes; Hx Alcohol Use: Yes Alcohol type: beer and hard liquor Hx Substance Use: No Preferred Language: German Communication Ability: Effective Beliefs That Will Affect Care: None Current Living Situation: Alone Feels Safe at Home: Yes Review of Systems Review of Systems: As per HPI, all 10 systems reviewed, all other ROS negative Physical Exam Physical Exam: GENERAL: Slightly uncomfortable, obese, no respiratory distress SKIN: Normal color, warm HEENT: [place] palpebral conjunctivae, no ptosis, dry buccal mucosa NECK : Supple, short neck, no tenderness CHEST : Decreased breath sounds , no tenderness HEART : RRR, no obvious murmurs ABDOMEN: Marked abd distention, central abdominal tenderness EXTREMITIES : No LE swelling/tenderness, no other conspicuous deformities noted NEUROLOGIC : Coherent, no facial asymmetry, no other gross focality Results & Data Results & Data ([facility]) Vital Signs (Past 12 Hours) Vital Signs Temp Pulse Resp BP Pulse Ox 06/13/20 22:24 99 H 14 91 06/13/20 22:22 92 H 18 127/86 06/13/20 20:54 36.7 C 100 H 20 127/77 91 Laboratory Results Laboratory Results WBC 22.27 K/uL (4.8-10.8) H 06/13/20 22:21 RBC 5.35 M/uL (4.7-6.1) 06/13/20 22:21 Hgb 16.9 g/dL (14.0-18.0) 06/13/20 22:21 Hct 51.4 % (42-52) 06/13/20 22:21 MCV 96.1 fL (80-100) 06/13/20 22:21 MCH 31.6 pg (25-34) 06/13/20 22:21 MCHC 32.9 g/dL (32-36) 06/13/20 22:21 RDW Std Deviation 48.7 fL (36.4-46.3) H 06/13/20 22:21 RDW Coeff of Eric 13.9 % (11.5-14.5) 06/13/20 22:21 Plt Count 271 K/uL (130-400) 06/13/20 22:21 MPV 10.4 fL (7.4-10.4) 06/13/20 22:21 Immature Gran % (Auto) 0.5 % 06/13/20 22:21 Neut % (Auto) 84.9 % 06/13/20 22:21 Lymph % (Auto) 8.4 % 06/13/20 22:21 [place] % (Auto) 6.0 % 06/13/20 22:21 Eos % (Auto) 0.1 % 06/13/20 22:21 Baso % (Auto) 0.1 % 06/13/20 22:21 Neut # (Auto) 18.90 K/uL (1.4-6.5) H 06/13/20 22:21 Lymph # (Auto) 1.88 K/uL (1.2-3.4) 06/13/20 22:21 [place] # (Auto) 1.34 K/uL (0.11-0.59) H 06/13/20 22:21 Eos # (Auto) 0.02 K/uL (0-0.5) 06/13/20 22:21 Baso # (Auto) 0.02 K/uL (0-0.2) 06/13/20 22:21 Immature Gran # (Auto) 0.11 K/uL (0.00-0.02) H 06/13/20 22:21 Sodium 137 mmol/L (136-145) 06/13/20 22:21 Potassium 3.8 mmol/L (3.5-5.1) 06/13/20 22:21 Chloride 98 mmol/L (98-107) 06/13/20 22:21 Carbon Dioxide 32 mmol/L (21-32) 06/13/20 22:21 Anion Gap 7.0 (3-11) 06/13/20 22:21 BUN 14 mg/dl (7-18) 06/13/20 22:21 Creatinine 1.33 mg/dl (0.6-1.4) 06/13/20 22:21 Est Cr Clr Drug Dosing 66.7 ml/min 06/13/20 22:21 Est GFR ( Amer) 63.7 06/13/20 22:21 Est GFR (Non-Af Amer) 54.9 06/13/20 22:21 BUN/Creatinine Ratio 10.5 (10-20) 06/13/20 22:21 Glucose 170 mg/dl (70-99) H 06/13/20 22:21 Calcium 10.3 mg/dl (8.5-10.1) H 06/13/20 22:21 Magnesium 1.9 mg/dl (1.8-2.4) 06/13/20 22:21 Total Bilirubin 0.7 mg/dl (0.2-1) 06/13/20 22:21 AST 13 U/L (15-37) L 06/13/20 22:21 ALT 26 U/L (12-78) 06/13/20 22:21 Alkaline Phosphatase 144 U/L (45-117) H 06/13/20 22:21 Total Protein 7.9 gm/dl (6.4-8.2) 06/13/20 22:21 Albumin 4.3 gm/dl (3.4-5.0) 06/13/20 22:21 Globulin 3.6 gm/dl (2.5-4.0) 06/13/20 22:21 Albumin/Globulin Ratio 1.2 (0.9-2) 06/13/20 22:21 Lipase 56 U/L (73-393) L 06/13/20 22:21 Urine Color Dark Yellow 06/13/20 22:21 Urine Appearance Clear (Clear) 06/13/20 22:21 Urine pH 6.0 (4.5-7.5) 06/13/20 22:21 Ur Specific [place] 1.030 (1.000-1.030) 06/13/20 22:21 Urine Protein 1+ (Negative) H 06/13/20 22:21 Urine Glucose (UA) Negative (Negative) 06/13/20 22: Urine Ketones 2+ (Negative) H 06/13/20 22:21 Urine Blood Trace (Negative) H 06/13/20 22:21 Urine Nitrite Negative (Negative) 06/13/20 22:21 Urine Bilirubin Negative (Negative) 06/13/20 22:21 Urine Urobilinogen Negative (Negative) 06/13/20 22:21 Ur Leukocyte Esterase Negative (Negative) 06/13/20 22:21 Urine WBC (Auto) 1-5 /hpf (0-5) 06/13/20 22:21 Urine RBC (Auto) 5-10 /hpf (0-4) H 06/13/20 22:21 U Hyaline Cast (Auto) 5-10 /lpf (0-5) H 06/13/20 22:21 U Epithel Cells (Auto) 10-20 /lpf (0-5) H 06/13/20 22:21 Urine Bacteria (Auto) Negative (Negative) 06/13/20 22:[address] abdomen pelvis initial read: Small bowel obstruction, transition point seen in the midline in the upper pelvis. No bowel wall pneumatosis or portal venous air. Chest x-ray as per my interpretation atelectasis, cardiomegaly EKG as per my interpretation : Rate 95, NSR, normal axis, T wave abnormalities inferior leads, inferior infarct
[2020-06-14] MEDS ORDERED: KETOROLAC TROMETHAMINE 15 MG/ML VIAL IV STA (01:33)
[2020-06-14] MEDS ORDERED: GLUCOSE 10 TABS/TUBE PO PRN (02:44)
[2020-06-14] MEDS ORDERED: XOPENEX/ATROVENT 1.25mg/0.5MG NEB COMBO NEB PRN (02:44)
[2020-06-14] MEDS ORDERED: GLUCOSE 40% GEL 15 GM TUBE PO PRN (02:44)
[2020-06-14] MEDS ORDERED: IPRATROPIUM BROMIDE NEB SOLN 0.02% 2.5 ML VIAL INH PRN (02:44)
[2020-06-14] MEDS ORDERED: LEVALBUTEROL 1.25MG/0.5ML NEB INH PRN (02:44)
[2020-06-14] MEDS ORDERED: CARBOHYDRATES FOR HYPOGLYCEMIA PO PRN (02:44)
[2020-06-14] MEDS ORDERED: LORazepam 0.5 MG/1 ML VIAL IV PRN (02:44)
[2020-06-14] MEDS ORDERED: GLUCAGON FOR INJ 1 MG VIAL SQ PRN (02:44)
[2020-06-14] MEDS ORDERED: DEXTROSE 50% 50 ML SYRINGE IV PRN (02:44)
[2020-06-14] MEDS ORDERED: ACETAMINOPHEN 325 MG TAB PO PRN (02:44)
[2020-06-14] MEDS: OXYCODONE HCL IR 5 MG TAB (IMMEDIATE RELEASE) PO PRN ×2 (03:17→07:31)
[2020-06-14] MEDS: INSULIN ASPART 100 UNITS/ML 3 ML PEN SC SCH ×4 (03:18→18:03)
[2020-06-14] MEDS: DOCUSATE SODIUM/SENNA 50/8.6MG TAB PO SCH ×2 (03:36→08:19)
[2020-06-14] MEDS: KETOROLAC TROMETHAMINE 15 MG/ML VIAL IV PRN ×2 (04:46→10:48)
--- NOTE | 2020-06-14 06:40 | XRay Report ---
XR chest 1V portable HISTORY: 65 years-old Male sob acute shortness of breath COMPARISON: Chest radiograph 03/16/2015, CTA chest 12/07/2013. TECHNIQUE: Portable AP view of the chest FINDINGS: Mild emphysema redemonstrated along with chronic interstitial coarsening. Unchanged mild right hilar prominence is likely secondary to summation density. Cardiac silhouette is upper limits of normal in size. No pneumothorax, pleural effusion, overt pulmonary edema or airspace consolidation typical for pneumonia. Degenerative changes of the shoulders and spine. IMPRESSION: 1. No acute process. 2. Emphysema with chronic interstitial coarsening. ACT 112: Negative or not required by law. The above report was generated using voice recognition software. It may contain grammatical, syntax o r spelling errors. Electronically signed by: Lv Leal M.D. 06/14/2020 6:39 AM
[2020-06-14 07:08] LABS: Basophils # (auto) 0.01 K/uL (0-0.2); Basophils % (auto) 0.1 %; Eosinophils # (auto) 0.03 K/uL (0-0.5); Eosinophils % (auto) 0.2 %; Hematocrit (blood only) 45.8 % (42-52); Hemoglobin 15.2 g/dL (14.0-18.0); Immature Granulocytes # (auto) 0.04 K/uL (0.00-0.02); Immature Granulocytes % (auto) 0.3 %; Lymphocytes # (auto) 1.83 K/uL (1.2-3.4); Lymphocytes % (auto) 12.3 %; Mean Corpuscular Hemoglobin 31.7 pg (25-34); Mean Corpuscular Hgb Conc 33.2 g/dL (32-36); Mean Corpuscular Volume 95.6 fL (80-100); Mean Platelet Volume 10.5 fL (7.4-10.4); Monocytes # (auto) 1.02 K/uL (0.11-0.59); Monocytes % (auto) 6.9 %; Neutrophils # (auto) 11.95 K/uL (1.4-6.5); Neutrophils % (auto) 80.2 %; Platelet Count 277 K/uL (130-400); RDW Coefficient of Variation 13.7 % (11.5-14.5); RDW Standard Deviation 48.2 fL (36.4-46.3); Red Blood Count 4.79 M/uL (4.7-6.1); White Blood Count 14.88 K/uL (4.8-10.8)
--- NOTE | 2020-06-14 07:12 | CT Scan Report ---
CT OF THE ABDOMEN AND PELVIS WITHOUT CONTRAST CLINICAL HISTORY: Upper abdominal pain. COMPARISON STUDY: CT of the abdomen and pelvis March 03, 2017. TECHNIQUE: Axial images of the abdomen and pelvis were obtained without IV contrast. Images were revi ewed in the axial, sagittal, and coronal planes. Automated exposure control was utilized for the emerson dy. A dose lowering technique was utilized adhering to the principles of ALARA. FINDINGS: Opacities within the lower lungs favor atelectasis. No pneumatosis, free air or portal veno us gas is present. Probable fatty infiltration of the liver is noted. There is no biliary or pancreat ic ductal dilatation. Unenhanced images of the spleen, adrenal glands and kidneys are normal. There i s no peripancreatic or pericholecystic infiltration. There is no hydronephrosis. The proximal to mid small bowel is mildly dilated and fluid-filled. Small bowel feces sign is noted with transition point within the posterior mid abdomen on axial image 297 of 501. The distal small bowel is decompressed. The appendix is normal. Fat and fluid containing umbilical hernia is present. There is trace ascites within the abdomen with minimal infiltration. Colonic diverticulosis is noted without evidence for ac homero diverticulitis. There are no suspicious osseous lesions. IMPRESSION: 1. Findings consistent with a moderate grade small bowel obstruction with transition point within the posterior mid abdomen within the distal ileum. No pneumatosis, free air or portal venous gas. Trace associated ascites and mesenteric infiltration. 2. Fat and fluid containing umbilical hernia which does not result in the bowel obstruction. ACT 112: Negative or not required by law. Electronically signed by: Gary Drew M.D. 06/14/2020 7:11 AM
[2020-06-14 07:42] LABS: Est GFR (African American) 67.3; Potassium 3.9 mmol/L (3.5-5.1)
[2020-06-14 07:43] LABS: BUN Creatinine Ratio 13.2 (10-20); Est GFR (Non-African American) 58.1
[2020-06-14] MEDS: PROMETHAZINE HCL 12.5 MG in SODIUM CHLORIDE 0.9% 50 ML IV PRN ×2 (08:15→19:27)
[2020-06-14] MEDS ORDERED: ATORVASTATIN 40 MG TAB PO SCH (09:00)
[2020-06-14] MEDS ORDERED: PANTOprazole 40 MG TAB PO SCH (09:00)
[2020-06-14 09:53] LABS: Estimated Average Glucose 128 mg/dl; Hemoglobin A1C 6.1 % (4.5-5.6)
[2020-06-14] MEDS: LACTATED RINGER'S 1,000 ML IV SCH ×2 (10:49→23:20)
--- NOTE | 2020-06-14 11:10 | Surgery Consultation ---
Date of Consultation June 14, 2020 Assessment & Plan (1) SBO (small bowel obstruction): pt is a 65 year-old male who was admitted to hospital for SBO, IMP: SBO, Plan, I agree with conservative treatment first, NPO, pt could not have NG tube insertion base on pt's nose surgery x2in the past, IV fluid, iv antibiotic, control pain, repeat KUB in am, will F/U D/W possible surgery treatment, Benefits, risks and alternatives of the surgery, pt understood, he agrees with the plan, I answered all questions, History of Present Illness Attending Physician: Ct Spencer MD History of Present Illness Chief Complaint: Abdominal pain Primary Care Provider: Shannan Ventura MD History obtained from patient and records. 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 Patient has been having burning epigastric discomfort with nausea symptoms the last 3 months not relieved by Pepcid. Prilosec prescribed for possible GERD. Prilosec dose increased last month after PCP visit. Partial improvement in discomfort. Persistent heartburn, belching and bloating discomfort on PCP follow-up visit last week. Occasional diarrhea/constipation as per outpatient note. Prilosec switched to Protonix. GI referral contemplated if without improvement as per note. Patient noted worsening achy upper abdominal discomfort the last 2 days with nausea and emesis. No fever, no chills. Somewhat constipated. No chest pain. Usual shortness of breath. Patient consulted ER for evaluation. Unsuccessful attempts at NGT insertion for small bowel suction and CT resulted in some epistaxis. I ( Ani Plasencia MD ) got a call for consult SBO, I reviewed pt's H/P, Labs, CT scan with pt, pt is still have some abdominal pain, no nausea, no vomiting, not passed gas yet. 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 Allergies Allergy/AdvReac Type Severity Reaction Status Date / Time amoxicillin Allergy Mild ITCHING Verified 06/13/20 22:53 clarithromycin Allergy Mild ITCHING Verified 06/13/20 22:53 morphine Allergy Mild ITCHING Verified 06/13/20 22:53 Penicillins Allergy Mild RASH Verified 06/13/20 22:53 Home Medications Home Medications Medication Instructions Recorded Confirmed Type aspirin 325 mg PO DAILY 06/13/20 06/13/20 History atorvastatin 40 mg PO DAILY 06/13/20 06/13/20 History budesonide [Pulmicort] 0.5 mg INHALATION BID PRN 06/13/20 06/13/20 History doxazosin 8 mg PO HS 06/13/20 06/13/20 History doxycycline monohydrate 100 mg PO QAM 06/13/20 06/13/20 History hydrocodone-acetaminophen 1 tab PO Q6H PRN 06/13/20 06/13/20 History meloxicam 15 mg PO DAILY 06/13/20 06/13/20 History ondansetron HCl 4 mg PO DIRECTED PRN 06/13/20 06/13/20 History pantoprazole 40 mg PO DAILY 06/13/20 06/13/20 History Past Med/Surg History Social History Smoking Status: Former smoker Do You Dip or Chew Tobacco: Yes; Hx Alcohol Use: Yes Alcohol type: beer and hard liquor Hx Substance Use: No Preferred Language: Panamanian Communication Ability: Effective Beliefs That Will Affect Care: None Current Living Situation: Alone Feels Safe at Home: Yes Review of Systems Review of Systems: As per HPI, all 10 systems reviewed, all other ROS negative Allergies Allergy/AdvReac Type Severity Reaction Status Date / Time amoxicillin Allergy Mild ITCHING Verified 06/13/20 22:53 clarithromycin Allergy Mild ITCHING Verified 06/13/20 22:53 morphine Allergy Mild ITCHING Verified 06/13/20 22:53 Penicillins Allergy Mild RASH Verified 06/13/20 22:53 Home Medications Home Medications Medication Instructions Recorded Confirmed Type aspirin 325 mg PO DAILY 06/13/20 06/13/20 History atorvastatin 40 mg PO DAILY 06/13/20 06/13/20 History budesonide [Pulmicort] 0.5 mg INHALATION BID PRN 06/13/20 06/13/20 History doxazosin 8 mg PO HS 06/13/20 06/13/20 History doxycycline monohydrate 100 mg PO QAM 06/13/20 06/13/20 History hydrocodone-acetaminophen 1 tab PO Q6H PRN 06/13/20 06/13/20 History meloxicam 15 mg PO DAILY 06/13/20 06/13/20 History ondansetron HCl 4 mg PO DIRECTED PRN 06/13/20 06/13/20 History pantoprazole 40 mg PO DAILY 06/13/20 06/13/20 History Patient History Social History Smoking Status: Former smoker Do You Dip or Chew Tobacco: Yes; Hx Alcohol Use: Yes Alcohol type: beer and hard liquor Hx Substance Use: No Preferred Language: Pan[place]ian Communication Ability: Effective Beliefs That Will Affect Care: None Current Living Situation: Alone Feels Safe at Home: Yes Review of Systems Review of Systems: All systems reviewed & are unremarkable except as noted in HPI & below Constitutional: as per Subjective / HPI Eyes: as per Subjective / HPI Ear, Nose, Mouth, Throat: as per Subjective / HPI Respiratory: as per Subjective / HPI black lung Cardiovascular: as per Subjective / HPI Additional Comments: HTN, right side chest pain Gastrointestinal: as per Subjective / HPI colon polyp, colonoscopy 2 years ago, Genitourinary: + as per Subjective / HPI Musculoskeletal: as per Subjective / HPI arthritis Integumentary: as per Subjective / HPI Neurologic: as per Subjective / HPI Psychiatric: as per Subjective / HPI Endocrine: DM Hematologic / Lymphatic: as per Subjective / HPI Allergy / Immunological: as per Subjective / HPI Physical Exam Constitutional: WD/WN, vitals as above well developed and well nourished Eyes: PERRL, conjunctivae normal, anicteric sclerae ENMT: external ear and nose normal, oropharynx normal Neck: trachea midline, no thyromegaly Respiratory: normal respiratory effort, lungs clear to auscultation normal respiratory effort Cardiovascular: RRR, no murmur, no edema Rate/Rhythm: regular rate and regular rhythm Gastrointestinal (Abdomen): normal bowel sounds, soft, nontender, no hepatosplenomegaly soft, mild distend, some tenderness at goldy-umbilical area, no rebound pain, Umbilical hernia +, reducible, no redness, BS + Musculoskeletal: no cyanosis or clubbing, extremities motor strength 5/5 Skin: no rashes, warm and dry Neurologic: patellar DTR's 2+ bilat, sensation intact Psychiatric: Orientation: alert and oriented x 3 Results & Data Vital Signs (Past 12 Hours) Vital Signs Temp Pulse Pulse Resp BP BP BP 06/14/20 07:26 36.4 C L 80 20 138/62 06/14/20 04:41 37 C 81 20 126/70 06/14/20 03:30 96 H 06/14/20 03:01 36.6 C 90 16 147/92 H 06/14/20 02:10 87 17 06/14/20 02:01 85 22 06/14/20 02:00 85 20 125/90 06/14/20 01:50 80 20 06/14/20 01:40 81 21 06/14/20 01:31 88 20 06/14/20 01:30 87 17 103/70 06/14/20 01:20 93 H 19 06/14/20 01:00 96 H 22 122/86 06/14/20 00:40 90 18 06/14/20 00:31 89 18 122/66 06/14/20 00:01 94 H 19 108/78 06/14/20 00:00 93 H 18 06/13/20 23:50 93 H 17 06/13/20 23:40 94 H 22 06/13/20 23:31 94 H 26 H 06/13/20 23:30 93 H 26 H 129/73 06/13/20 23:20 95 H 24 06/13/20 23:10 92 H 23 06/13/20 23:07 90 21 120/75 Pulse Ox 06/14/20 07:26 91 06/14/20 04:41 90 06/14/20 03:30 06/14/20 03:01 92 06/14/20 02:10 98 06/14/20 02:01 96 06/14/20 02:00 95 06/14/20 01:50 94 06/14/20 01:40 86 L 06/14/20 01:31 88 L 06/14/20 01:30 88 L 06/14/20 01:20 90 06/14/20 01:00 89 L 06/14/20 00:40 06/14/20 00:31 91 06/14/20 00:01 90 06/14/20 00:00 06/13/20 23:50 06/13/20 23:40 06/13/20 23:31 06/13/20 23:30 06/13/20 23:20 06/13/20 23:10 06/13/20 23:07 Laboratory Results Abnormal lab results 06/13/20 06/13/20 06/13/20 Range/Units 22:21 22:21 22:21 WBC 22.27 H (4.8-10.8) K/uL RDW Std Deviation 48.7 H (36.4-46.3) fL MPV (7.4-10.4) fL Neut # (Auto) 18.90 H (1.4-6.5) K/uL [place] # (Auto) 1.34 H (0.11-0.59) K/uL Immature Gran # (Auto) 0.11 H (0.00-0.02) K/uL Carbon Dioxide (21-32) mmol/L Glucose 170 H (70-99) mg/dl POC Glucose (70-99) mg/dl Hemoglobin A1c (4.5-5.6) % Calcium 10.3 H (8.5-10.1) mg/dl AST 13 L (15-37) U/L Alkaline Phosphatase 144 H (45-117) U/L Lipase 56 L (73-393) U/L Urine Protein 1+ H (Negative) Urine Ketones 2+ H (Negative) Urine Blood Trace H (Negative) Urine RBC (Auto) 5-10 H (0-4) /hpf U Hyaline Cast (Auto) 5-10 H (0-5) /lpf U Epithel Cells (Auto) 10-20 H (0-5) /lpf 06/14/20 06/14/20 06/14/20 Range/Units 03:06 06:37 06:37 WBC 14.88 H (4.8-10.8) K/uL RDW Std Deviation 48.2 H (36.4-46.3) fL MPV 10.5 H (7.4-10.4) fL Neut # (Auto) 11.95 H (1.4-6.5) K/uL [place] # (Auto) 1.02 H (0.11-0.59) K/uL Immature Gran # (Auto) 0.04 H (0.00-0.02) K/uL Carbon Dioxide (21-32) mmol/L Glucose (70-99) mg/dl POC Glucose 136 H (70-99) mg/dl Hemoglobin A1c 6.1 H (4.5-5.6) % Calcium (8.5-10.1) mg/dl AST (15-37) U/L Alkaline Phosphatase (45-117) U/L Lipase (73-393) U/L Urine Protein (Negative) Urine Ketones (Negative) Urine Blood (Negative) Urine RBC (Auto) (0-4) /hpf U Hyaline Cast (Auto) (0-5) /lpf U Epithel Cells (Auto) (0-5) /lpf 06/14/20 06/14/20 Range/Units 06:37 07:41 WBC (4.8-10.8) K/uL RDW Std Deviation (36.4-46.3) fL MPV (7.4-10.4) fL Neut # (Auto) (1.4-6.5) K/uL [place] # (Auto) (0.11-0.59) K/uL Immature Gran # (Auto) (0.00-0.02) K/uL Carbon Dioxide 33 H (21-32) mmol/L Glucose 121 H (70-99) mg/dl POC Glucose 121 H (70-99) mg/dl Hemoglobin A1c (4.5-5.6) % Calcium (8.5-10.1) mg/dl AST (15-37) U/L Alkaline Phosphatase (45-117) U/L Lipase (73-393) U/L Urine Protein (Negative) Urine Ketones (Negative) Urine Blood (Negative) Urine RBC (Auto) (0-4) /hpf U Hyaline Cast (Auto) (0-5) /lpf U Epithel Cells (Auto) (0-5) /lpf Diagnostic Findings CT OF THE ABDOMEN AND PELVIS WITHOUT CONTRAST CLINICAL HISTORY: Upper abdominal pain. COMPARISON STUDY: CT of the abdomen and pelvis March 03, 2017. TECHNIQUE: Axial images of the abdomen and pelvis were obtained without IV contrast. Images were reviewed in the axial, sagittal, and coronal planes. Automated exposure control was utilized for the study. A dose lowering technique was utilized adhering to the principles of ALARA. FINDINGS: Opacities within the lower lungs favor atelectasis. No pneumatosis, free air or portal venous gas is present. Probable fatty infiltration of the liver is noted. There is no biliary or pancreatic ductal dilatation. Unenhanced images of the spleen, adrenal glands and kidneys are normal. There is no peripancreatic or pericholecystic infiltration. There is no hydronephrosis. The proximal to mid small bowel is mildly dilated and fluid-filled. Small bowel feces sign is noted with transition point within the posterior mid abdomen on axial image 297 of [id number]. The distal small bowel is decompressed. The appendix is normal. Fat and fluid containing umbilical hernia is present. There is trace ascites within the abdomen with minimal infiltration. Colonic diverticulosis is noted without evidence for acute diverticulitis. There are no suspicious osseous lesions. IMPRESSION: 1. Findings consistent with a moderate grade small bowel obstruction with transition point within the posterior mid abdomen within the distal ileum. No pneumatosis, free air or portal venous gas. Trace associated ascites and mesenteric infiltration. 2. Fat and fluid containing umbilical hernia which does not result in the bowel obstruction.
[2020-06-14] MEDS: metroNIDAZOLE 500 MG/100 ML BAG IV SCH ×2 (13:04→20:31)
[2020-06-14] MEDS: CIPROFLOXACIN / D5W 400 MG/200 ML BAG IV SCH ×2 (13:05→23:57)
--- NOTE | 2020-06-14 13:33 | Electrocardiogram Report ---
Test Reason : Blood Pressure : / mmHG Vent. Rate : 095 BPM Atrial Rate : 095 BPM P-R Int : 150 ms QRS Dur : 086 ms QT Int : 342 ms P-R-T Axes : 043 018 006 degrees QTc Int : 429 ms Normal sinus rhythm with sinus arrhythmia Inferior infarct , age undetermined Abnormal ECG When compared with ECG of 16-MAR-2015 14:21, Inferior infarct is now Present Confirmed by Kiran Scales ([id number]) on 06/14/2020 1:33:25 PM Referred By: REFERRED SELF Confirmed By:Kiran Scales
--- NOTE | 2020-06-14 15:13 | Communication Note ---
Date of Service: June 14, 2020 Pt was seen and examined. Lying in bed with no distress. Pt said that he continues to have some abdominal tenderness . He said that the narcotic help with the pain. Denies any chest pain, palpitation, dizziness and SOB Exam General- No acute distress Head- atraumatic Eyes- PERRL, EOMI, ENT- oropharynx clear Neck- supple, no JVD Lungs- clear to auscultation Heart- regular rhythm Abdomen- +tenderness with deep palpation, +umbilical hernia, +distention Extremities- no calf tenderness Neuro- alert, oriented x 3; PERRL, EOMI; no facial palsy; no dysarthria Skin- warm & dry A/P SBO Present on admission with abdominal pain associated with nausea and vomiting CT abd/plevis showed findings consistent with a moderate grade small bowel obstruction with transition point within the posterior mid abdomen within the distal ileum Surgery on board Recommended conservative management Keep NPO and continue IVF failed attemptx2 for NG tube insertion Pain control Check KUB in am Continue monitor closely
[2020-06-14] MEDS: DOXAZosin MESYLATE 4 MG TAB PO SCH (20:32)
[2020-06-14] MEDS ORDERED: HYDROmorphone INJ 0.5 MG/0.5 ML SYR IV PRN (22:45)
[2020-06-15] MEDS: INSULIN ASPART 100 UNITS/ML 3 ML PEN SC SCH ×4 (00:09→21:08)
[2020-06-15] MEDS: metroNIDAZOLE 500 MG/100 ML BAG IV SCH ×3 (04:37→20:46)
[2020-06-15] MEDS ORDERED: ACETAMINOPHEN 1,000 MG/100 ML VIAL IV PRN (07:38)
[2020-06-15] MEDS ORDERED: D5W AND 1/2NSS 1,000 ML IV SCH (07:45)
--- NOTE | 2020-06-15 08:12 | XRay Report ---
KUB HISTORY: Small bowel obstruction with constipation SBO COMPARISON: CT abdomen pelvis 06/13/2020 FINDINGS: Persistent small bowel dilation with small bowel loops measuring up to 5.2 cm. This appears similar to slightly worsened from comparison. Mild fecal retention. No renal calculi. No ureteral c alculi. No pneumoperitoneum or pneumatosis. Degenerative changes of the spine, pelvis and hips. No fr acture. IMPRESSION: Persistent small bowel obstruction. ACT 112: Negative or not required by law. The above report was generated using voice recognition software. It may contain grammatical, syntax o r spelling errors. Electronically signed by: Lv Leal M.D. 06/15/2020 8:11 AM
[2020-06-15] MEDS: DOCUSATE SODIUM/SENNA 50/8.6MG TAB PO SCH (08:21)
--- NOTE | 2020-06-15 09:08 | Hospitalist Progress Note ---
Date of Service June 15, 2020 Assessment & Plan (1) SBO (small bowel obstruction): -as per 06/14/2020 ED notes: "Patient presented with upper abdominal pain, nausea and vomiting. He had blood work obtained. The patient was found to have a significant leukocytosis with an unremarkable chemistry panel and LFTs" -admission CT abdomen "Findings consistent with a moderate grade small bowel obstruction with transition point within the posterior mid abdomen within the distal ileum. No pneumatosis, free air or portal venous gas. Trace associated ascites and mesenteric infiltration. Fat and fluid containing umbilical hernia which does not result in the bowel obstruction." -general surgery following the patient and started IV ciprofloxacin and IV Flagyl on this admission, can continue since it is unclear at this time whether any needs on this admission for surgery -06/15/2020 updates: Patient clinically appears comfortable. He denies vomiting. He denies abdomen pain. The abdomen is soft and nontender to palpation. He denies bowel movement. The KUB "Persistent small bowel dilation with small bowel loops measuring up to 5.2 cm. This appears similar to slightly worsened from comparison." Patient could not get NG tube down on admission, he is agreeable to try NG tube placement attempt today. 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, SERGIO as per records -currently on room air -would avoid CPAP at this time to avoid filling bowels with air Leukocytosis -admission WBC 22,000 -is downtrending -admission UA normal -no fevers on admission, send blood cultures -IV antibiotics as above Diastolic dysfunction (EF 60%, TTE 2018) Hypertension Peripheral Vascular Disease as per records -IV Enalaprilat for blood pressure while NPO Diabetes Mellitus 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 He denies vomiting. He denies abdomen pain. The abdomen is soft and nontender to palpation. He denies bowel movement. The KUB "Persistent small bowel dilation with small bowel loops measuring up to 5.2 cm. This appears similar to slightly worsened from comparison." Patient could not get NG tube down on admission, he is agreeable to try NG tube placement attempt today. Review of Systems Review of Systems: All systems reviewed & are unremarkable except as noted in Subjective Physical Exam Constitutional: comfortable Eyes: PERRL, conjunctivae normal, anicteric sclerae EOM intact bilaterally ENMT: external ear and nose normal, oropharynx normal Neck: trachea midline, no thyromegaly normal visual inspection Respiratory: normal respiratory effort, lungs clear to auscultation Cardiovascular: Rate/Rhythm: regular rate Gastrointestinal (Abdomen): Percussion/Palpation: abdomen soft hernia, ab domen is nontender to palpation Musculoskeletal: Head/Neck/Chest: normocephalic and head atraumatic Neurologic: PERRL, EOMI, accommodation nl, no face palsy, no dysarthria Psychiatric: A+Ox3, euthymic affect Results & Data Results & Data ([facility]) Vital Signs (Past 12 Hours) Vital Signs Temp Pulse Pulse Resp BP BP Pulse Ox 06/15/20 07:27 36.8 C 79 20 179/99 H 91 06/15/20 03:50 36.6 C 82 18 137/77 93 06/14/20 23:10 37.1 C 72 18 128/61 92 06/14/20 22:20 81
[2020-06-15 09:59] LABS: Eosinophils # (auto) 0.05 K/uL (0-0.5); Eosinophils % (auto) 0.5 %; Hemoglobin 15.1 g/dL (14.0-18.0); Immature Granulocytes # (auto) 0.04 K/uL (0.00-0.02); Immature Granulocytes % (auto) 0.4 %; Lymphocytes # (auto) 1.51 K/uL (1.2-3.4); Lymphocytes % (auto) 13.9 %; Mean Corpuscular Hemoglobin 31.7 pg (25-34); Mean Corpuscular Hgb Conc 33.6 g/dL (32-36); Mean Corpuscular Volume 94.5 fL (80-100); Mean Platelet Volume 10.5 fL (7.4-10.4); Monocytes % (auto) 8.3 %; Neutrophils # (auto) 8.34 K/uL (1.4-6.5); Neutrophils % (auto) 76.9 %; Platelet Count 238 K/uL (130-400); RDW Coefficient of Variation 13.7 % (11.5-14.5); RDW Standard Deviation 47.5 fL (36.4-46.3); Red Blood Count 4.76 M/uL (4.7-6.1); White Blood Count 10.84 K/uL (4.8-10.8)
[2020-06-15 10:26] LABS: Albumin Globulin Ratio 1.1 (0.9-2); Albumin Level 3.4 gm/dl (3.4-5.0); BUN Creatinine Ratio 8.5 (10-20); Bilirubin,Total 0.6 mg/dl (0.2-1); Calcium 8.1 mg/dl (8.5-10.1); Creatinine Clr Calc Pharmacy 84.8 ml/min; Est GFR (African American) 84.7; Est GFR (Non-African American) 73.1; Globulin 3.2 gm/dl (2.5-4.0); Magnesium 2.6 mg/dl (1.8-2.4); Phosphorus 2.7 mg/dl (2.5-4.9); Potassium 3.9 mmol/L (3.5-5.1); Total Protein 6.6 gm/dl (6.4-8.2)
[2020-06-15] MEDS: ENALAPRILAT 1.25 MG in DEXTROSE 5% 25 ML IV SCH ×2 (10:40→21:53)
--- NOTE | 2020-06-15 10:42 | Surgery Progress Note ---
Date of Service pt just passed BM after KUB, pt feels better, no abdominal pain, no nausea, no vomiting, no fever, KUB reviewed, June 15, 2020 Assessment & Plan (1) SBO (small bowel obstruction): pt is a 65 year-old male who was admitted to hospital for SBO, IMP: SBO, Plan, I agree with conservative treatment first, NPO, pt could not have NG tube insertion base on pt's nose surgery x2in the past, IV fluid, iv antibiotic, control pain, repeat KUB in am, will F/U D/W possible surgery treatment, Benefits, risks and alternatives of the surgery, pt understood, he agrees with the plan, I answered all questions, 06/15/2020 10:44AM passed BM, resolved SBO, clear diet, will F/U Review of Systems Constitutional: as per Subjective / HPI Eyes: as per Subjective / HPI Ear, Nose, Mouth, Throat: as per Subjective / HPI Respiratory: as per Subjective / HPI black lung Cardiovascular: as per Subjective / HPI Additional Comments: HTN, right side chest pain Gastrointestinal: as per Subjective / HPI colon polyp, colonoscopy 2 years ago, Genitourinary: + as per Subjective / HPI Musculoskeletal: as per Subjective / HPI arthritis Integumentary: as per Subjective / HPI Neurologic: as per Subjective / HPI Psychiatric: as per Subjective / HPI Endocrine: DM Hematologic / Lymphatic: as per Subjective / HPI Allergy / Immunological: as per Subjective / HPI Physical Exam Constitutional: WD/WN, vitals as above well developed and well nourished Eyes: PERRL, conjunctivae normal, anicteric sclerae ENMT: external ear and nose normal, oropharynx normal Neck: trachea midline, no thyromegaly Respiratory: normal respiratory effort, lungs clear to auscultation normal respiratory effort Cardiovascular: RRR, no murmur, no edema Rate/Rhythm: regular rate and regular rhythm Gastrointestinal (Abdomen): normal bowel sounds, soft, nontender, no hepatosplenomegaly Percussion/Palpation: abdomen soft BS +, mild distend, NT, ND, Musculoskeletal: no cyanosis or clubbing, extremities motor strength 5/5 Skin: no rashes, warm and dry Neurologic: patellar DTR's 2+ bilat, sensation intact Psychiatric: Orientation: alert and oriented x 3 Results & Data Vital Signs (Past 12 Hours) Vital Signs Temp Pulse Resp BP BP Pulse Ox 06/15/20 09:24 80 149/78 H 06/15/20 07:27 36.8 C 79 20 179/99 H 91 06/15/20 03:50 36.6 C 82 18 137/77 93 06/14/20 23:10 37.1 C 72 18 128/61 92 KUB 06/15/2020 KUB HISTORY: Small bowel obstruction with constipation SBO COMPARISON: CT abdomen pelvis 06/13/2020 FINDINGS: Persistent small bowel dilation with small bowel loops measuring up to 5.2 cm. This appears similar to slightly worsened from comparison. Mild fecal retention. No renal calculi. No ureteral calculi. No pneumoperitoneum or pneumatosis. Degenerative changes of the spine, pelvis and hips. No fracture. IMPRESSION: Persistent small bowel obstruction. Laboratory Results Abnormal lab results 06/14/20 06/15/20 06/15/20 Range/Units 11:30 00:06 06:02 WBC (4.8-10.8) K/uL RDW Std Deviation (36.4-46.3) fL MPV (7.4-10.4) fL Neut # (Auto) (1.4-6.5) K/uL [place] # (Auto) (0.11-0.59) K/uL Immature Gran # (Auto) (0.00-0.02) K/uL BUN/Creatinine Ratio (10-20) Glucose (70-99) mg/dl POC Glucose 107 H 115 H 110 H (70-99) mg/dl Calcium (8.5-10.1) mg/dl Magnesium (1.8-2.4) mg/dl 06/15/20 06/15/20 06/15/20 Range/Units 07:41 09:31 09:31 WBC 10.84 H (4.8-10.8) K/uL RDW Std Deviation 47.5 H (36.4-46.3) fL MPV 10.5 H (7.4-10.4) fL Neut # (Auto) 8.34 H (1.4-6.5) K/uL [place] # (Auto) 0.90 H (0.11-0.59) K/uL Immature Gran # (Auto) 0.04 H (0.00-0.02) K/uL BUN/Creatinine Ratio 8.5 L (10-20) Glucose 130 H (70-99) mg/dl POC Glucose 118 H (70-99) mg/dl Calcium 8.1 L (8.5-10.1) mg/dl Magnesium 2.6 H (1.8-2.4) mg/dl
[2020-06-15] MEDS: CIPROFLOXACIN / D5W 400 MG/200 ML BAG IV SCH ×2 (11:06→23:53)
[2020-06-15] MEDS: POLYETHYLENE (MIRALAX) 17 GM PACK PO SCH (13:29)
[2020-06-15] MEDS: NICOTINE 21 MG/24 HR TDSY TD SCH (13:34)
[2020-06-15] MEDS: SENNA 8.6 MG TAB PO SCH (20:53)
[2020-06-15] MEDS: DOXAZosin MESYLATE 4 MG TAB PO SCH (20:54)
[2020-06-16] MEDS: metroNIDAZOLE 500 MG/100 ML BAG IV SCH ×2 (04:06→12:23)
[2020-06-16] MEDS: NICOTINE 21 MG/24 HR TDSY TD SCH (07:40)
[2020-06-16] MEDS: POLYETHYLENE (MIRALAX) 17 GM PACK PO SCH (07:41)
[2020-06-16] MEDS: SENNA 8.6 MG TAB PO SCH (07:42)
[2020-06-16 08:19] LABS: Basophils # (auto) 0.02 K/uL (0-0.2); Basophils % (auto) 0.2 %; Eosinophils # (auto) 0.16 K/uL (0-0.5); Eosinophils % (auto) 1.5 %; Hematocrit (blood only) 45.2 % (42-52); Hemoglobin 14.9 g/dL (14.0-18.0); Immature Granulocytes # (auto) 0.04 K/uL (0.00-0.02); Immature Granulocytes % (auto) 0.4 %; Lymphocytes # (auto) 2.36 K/uL (1.2-3.4); Lymphocytes % (auto) 21.8 %; Mean Corpuscular Hemoglobin 31.5 pg (25-34); Mean Corpuscular Volume 95.6 fL (80-100); Mean Platelet Volume 10.1 fL (7.4-10.4); Monocytes # (auto) 0.83 K/uL (0.11-0.59); Monocytes % (auto) 7.7 %; Neutrophils # (auto) 7.43 K/uL (1.4-6.5); Neutrophils % (auto) 68.4 %; Platelet Count 228 K/uL (130-400); RDW Coefficient of Variation 13.7 % (11.5-14.5); RDW Standard Deviation 48.6 fL (36.4-46.3); Red Blood Count 4.73 M/uL (4.7-6.1); White Blood Count 10.84 K/uL (4.8-10.8)
[2020-06-16] MEDS: INSULIN ASPART 100 UNITS/ML 3 ML PEN SC SCH ×2 (08:25→12:24)
[2020-06-16 08:49] LABS: Albumin Level 3.3 gm/dl (3.4-5.0); BUN Creatinine Ratio 5.5 (10-20); Calcium 7.9 mg/dl (8.5-10.1); Creatinine Clr Calc Pharmacy 79.6 ml/min; Est GFR (African American) 80.1; Est GFR (Non-African American) 69.1; Magnesium 2.8 mg/dl (1.8-2.4)
[2020-06-16 08:53] LABS: Albumin Globulin Ratio 1.1 (0.9-2); Bilirubin,Total 0.5 mg/dl (0.2-1); Globulin 2.9 gm/dl (2.5-4.0); Total Protein 6.2 gm/dl (6.4-8.2)
--- NOTE | 2020-06-16 09:37 | Hospitalist Progress Note ---
Date of Service June 16, 2020 Assessment & Plan (1) SBO (small bowel obstruction): -as per 06/14/2020 ED notes: "Patient presented with upper abdominal pain, nausea and vomiting. He had blood work obtained. The patient was found to have a significant leukocytosis with an unremarkable chemistry panel and LFTs" -admission CT abdomen "Findings consistent with a moderate grade small bowel obstruction with transition point within the posterior mid abdomen within the distal ileum. No pneumatosis, free air or portal venous gas. Trace associated ascites and mesenteric infiltration. Fat and fluid containing umbilical hernia which does not result in the bowel obstruction." -general surgery following the patient and started IV ciprofloxacin and IV Flagyl on this admission, can continue since it is unclear at this time whether any needs on this admission for surgery -06/15/2020 updates:The KUB "Persistent small bowel dilation with small bowel loops measuring up to 5.2 cm. 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, SERGIO as per records -advised patient to minimize narcotic pain medication in the future and that if he takes narcotic pain medication, he should be also concurrently on senna daily to prevent narcotic-induced constipation -currently on room air -would avoid CPAP for now Leukocytosis -admission WBC 22,000 -is downtrending -admission UA normal -no fevers on admission, blood cultures from 06/15/2020 were sent -currently WBC as 10,000 and no fevers to date -IV antibiotics as above Diastolic dysfunction (EF 60%, TTE 2018) Hypertension Peripheral Vascular Disease as per records -IV Enalaprilat for blood pressure given while in the hospital, can consider lisinopril on discharge in context of blood pressure and diabetes Diabetes 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 he agrees for repeat KUB to be performed before considering further diet to be advanced from clear liquids. no abdomen pain. no chest pain. no shortness of breath. breathing on room air. no dizziness. no headache Review of Systems Review of Systems: All systems reviewed & are unremarkable except as noted in Subjective Physical Exam Constitutional: comfortable Eyes: PERRL, conjunctivae normal, anicteric sclerae EOM intact bilaterally ENMT: external ear and nose normal, oropharynx normal Neck: trachea midline, no thyromegaly normal visual inspection Respiratory: normal respiratory effort, lungs clear to auscultation Cardiovascular: Rate/Rhythm: regular rate Gastrointestinal (Abdomen): Percussion/Palpation: abdomen soft Musculoskeletal: Head/Neck/Chest: normocephalic and head atraumatic Neurologic: PERRL, EOMI, accommodation nl, no face palsy, no dysarthria Psychiatric: A+Ox3, euthymic affect Results & Data Results & Data ([facility] [place]) Vital Signs (Past 12 Hours) Vital Signs Temp Pulse Pulse Resp BP BP Pulse Ox 06/16/20 07:26 36.8 C 66 20 125/74 94 06/16/20 03:04 36.8 C 72 18 124/69 93 06/15/20 23:08 37.1 C 73 18 163/84 H 94 06/15/20 22:20 80
[2020-06-16] MEDS: ENALAPRILAT 1.25 MG in DEXTROSE 5% 25 ML IV SCH (10:28)
--- NOTE | 2020-06-16 10:39 | XRay Report ---
KUB CLINICAL HISTORY: followup KUB for SBO. COMPARISON STUDY: CT of the abdomen and pelvis June 13, 2020. KUB June 15, 2020. FINDINGS: Persistent moderate dilatation of numerous small bowel loops is noted. Loops measure up to 5.1 cm in caliber. There is gas within the transverse colon and descending colon. IMPRESSION: Findings suggestive of a persistent small bowel obstruction. ACT 112: Negative or not required by law. Electronically signed by: Gary Drew M.D. 06/16/2020 10:37 AM
--- NOTE | 2020-06-16 11:15 | Surgery Progress Note ---
Date of Service pt is doing better, passed BM this morning, pt denies abdominal pain, no nausea, no vomiting, today-KUB- still SBO - some gas in colon, June 16, 2020 Assessment & Plan (1) SBO (small bowel obstruction): pt is a 65 year-old male who was admitted to hospital for SBO, IMP: SBO, Plan, I agree with conservative treatment first, NPO, pt could not have NG tube insertion base on pt's nose surgery x2in the past, IV fluid, iv antibiotic, control pain, repeat KUB in am, will F/U D/W possible surgery treatment, Benefits, risks and alternatives of the surgery, pt understood, he agrees with the plan, I answered all questions, 06/15/2020 10:44AM passed BM, resolved SBO, clear diet, will F/U 06/16/2020, 11:16AM passed BM, resolved SBO, full liquid diet, pt can be discharged home if pt tolerated diet, F/U dc 2 weeks [phone] Review of Systems Constitutional: as per Subjective / HPI Eyes: as per Subjective / HPI Ear, Nose, Mouth, Throat: as per Subjective / HPI Respiratory: as per Subjective / HPI black lung Cardiovascular: as per Subjective / HPI Additional Comments: HTN, right side chest pain Gastrointestinal: as per Subjective / HPI colon polyp, colonoscopy 2 years ago, Genitourinary: + as per Subjective / HPI Musculoskeletal: as per Subjective / HPI arthritis Integumentary: as per Subjective / HPI Neurologic: as per Subjective / HPI Psychiatric: as per Subjective / HPI Endocrine: DM Hematologic / Lymphatic: as per Subjective / HPI Allergy / Immunological: as per Subjective / HPI Physical Exam Constitutional: WD/WN, vitals as above well developed and well nourished Eyes: PERRL, conjunctivae normal, anicteric sclerae ENMT: external ear and nose normal, oropharynx normal Neck: trachea midline, no thyromegaly Respiratory: normal respiratory effort, lungs clear to auscultation normal respiratory effort Cardiovascular: RRR, no murmur, no edema Rate/Rhythm: regular rate and regular rhythm Gastrointestinal (Abdomen): normal bowel sounds, soft, nontender, no hepatosplenomegaly Percussion/Palpation: abdomen soft NT, ND, BS + Musculoskeletal: no cyanosis or clubbing, extremities motor strength 5/5 Skin: no rashes, warm and dry Neurologic: patellar DTR's 2+ bilat, sensation intact Psychiatric: Orientation: alert and oriented x 3 Results & Data Vital Signs (Past 12 Hours) Vital Signs Temp Pulse Resp BP Pulse Ox 06/16/20 07:26 36.8 C 66 20 125/74 94 06/16/20 03:04 36.8 C 72 18 124/69 93 Laboratory Results Abnormal lab results 06/15/20 06/15/20 06/15/20 Range/Units 11:39 16:37 20:15 WBC (4.8-10.8) K/uL RDW Std Deviation (36.4-46.3) fL Neut # (Auto) (1.4-6.5) K/uL [place] # (Auto) (0.11-0.59) K/uL Immature Gran # (Auto) (0.00-0.02) K/uL Chloride (98-107) mmol/L BUN (7-18) mg/dl BUN/Creatinine Ratio (10-20) Glucose (70-99) mg/dl POC Glucose 117 H 104 H 116 H (70-99) mg/dl Calcium (8.5-10.1) mg/dl Phosphorus (2.5-4.9) mg/dl Magnesium (1.8-2.4) mg/dl Total Protein (6.4-8.2) gm/dl Albumin (3.4-5.0) gm/dl 06/16/20 06/16/20 06/16/20 Range/Units 07:45 08:06 08:06 WBC 10.84 H (4.8-10.8) K/uL RDW Std Deviation 48.6 H (36.4-46.3) fL Neut # (Auto) 7.43 H (1.4-6.5) K/uL [place] # (Auto) 0.83 H (0.11-0.59) K/uL Immature Gran # (Auto) 0.04 H (0.00-0.02) K/uL Chloride 109 H (98-107) mmol/L BUN 6 L (7-18) mg/dl BUN/Creatinine Ratio 5.5 L (10-20) Glucose 112 H (70-99) mg/dl POC Glucose 110 H (70-99) mg/dl Calcium 7.9 L (8.5-10.1) mg/dl Phosphorus 2.0 L (2.5-4.9) mg/dl Magnesium 2.8 H (1.8-2.4) mg/dl Total Protein 6.2 L (6.4-8.2) gm/dl Albumin 3.3 L (3.4-5.0) gm/dl Diagnostic Findings KUB CLINICAL HISTORY: followup KUB for SBO. COMPARISON STUDY: CT of the abdomen and pelvis June 13, 2020. KUB June 15, 2020. FINDINGS: Persistent moderate dilatation of numerous small bowel loops is noted. Loops measure up to 5.1 cm in caliber. There is gas within the transverse colon and descending colon. IMPRESSION: Findings suggestive of a persistent small bowel obstruction.
[2020-06-16] MEDS: CIPROFLOXACIN / D5W 400 MG/200 ML BAG IV SCH (13:54)
--- NOTE | 2020-06-16 14:48 | Discharge Summary ---
Date of Service June 16, 2020 Admission HPI Per Admitting Provider History obtained from patient and records. 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 Patient has been having burning epigastric discomfort with nausea symptoms the last 3 months not relieved by Pepcid. Prilosec prescribed for possible GERD. Prilosec dose increased last month after PCP visit. Partial improvement in discomfort. Persistent heartburn, belching and bloating discomfort on PCP follow-up visit last week. Occasional diarrhea/constipation as per outpatient note. Prilosec switched to Protonix. GI referral contemplated if without improvement as per note. Patient noted worsening achy upper abdominal discomfort the last 2 days with nausea and emesis. No fever, no chills. Somewhat constipated. No chest pain. Usual shortness of breath. Patient consulted ER for evaluation. Unsuccessful attempts at NGT insertion for small bowel suction and CT resulted in some epistaxis. 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 Discharge Exam Constitutional comfortable Eyes PERRL, conjunctivae normal, anicteric sclerae EOM intact bilaterally ENMT external ear and nose normal, oropharynx normal Neck trachea midline, no thyromegaly normal visual inspection Respiratory normal respiratory effort, lungs clear to auscultation Cardiovascular Rate/Rhythm: regular rate Gastrointestinal (Abdomen) Percussion/Palpation: abdomen soft Musculoskeletal Head/Neck/Chest: normocephalic and head atraumatic Neurologic PERRL, EOMI, accommodation nl, no face palsy, no dysarthria Psychiatric A+Ox3, euthymic affect Discharge Data Allergies Allergy/AdvReac Type Severity Reaction Status Date / Time amoxicillin Allergy Mild ITCHING Verified 06/13/20 22:53 clarithromycin Allergy Mild ITCHING Verified 06/13/20 22:53 morphine Allergy Mild ITCHING Verified 06/13/20 22:53 Penicillins Allergy Mild RASH Verified 06/13/20 22:53 Consultations 06/14/20 02:44 Consult General Surgery Routine Ordered Studies 06/13/20 22:32 CT abd pelvis wo con Stat Hospital Course (1) SBO (small bowel obstruction): -as per 06/14/2020 ED notes: "Patient presented with upper abdominal pain, nausea and vomiting. He had blood work obtained. The patient was found to have a significant leukocytosis with an unremarkable chemistry panel and LFTs" -admission CT abdomen "Findings consistent with a moderate grade small bowel obstruction with transition point within the posterior mid abdomen within the distal ileum. No pneumatosis, free air or portal venous gas. Trace associated ascites and mesenteric infiltration. Fat and fluid containing umbilical hernia which does not result in the bowel obstruction." -general surgery following the patient and started IV ciprofloxacin and IV Flagyl on this admission, can continue since it is unclear at this time whether any needs on this admission for surgery -06/15/2020 updates:The KUB "Persistent small bowel dilation with small bowel loops measuring up to 5.2 cm. This appears similar to slightly worsened from comparison." however, patient was able to make bowel movements and allowed to have clear liquid diet -Patient has made bowel movements but KUB on 06/16/2020 with Persistent moderate dilatation of numerous small bowel loops is noted. Loops measure up to 5.1 cm in caliber. There is gas within the transverse colon and descending colon General surgery allows for discharge discharge to home, patient is encouraged to have full liquid diet for now until follow up with general surgery Dr. Plasencia Patient should make appointment to follow up (call [phone]) with general surgery Dr. 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, SERGIO as per records -advised patient to minimize narcotic pain medication in the future and that if he takes narcotic pain medication, he should be also concurrently on senna daily to prevent narcotic-induced constipation -currently on room air -avoid CPAP until all bowel symptoms resolve Leukocytosis -admission WBC 22,000 -is downtrending -admission UA normal -no fevers on admission, blood cultures from 06/15/2020 were sent and no growth to date -currently WBC as 10,000 and no fevers to date -IV antibiotics last dose given on 06/16/2020 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 -recent outpatient hemoglobin A1c of 6.28 December 2019 Alcohol Use Past tobacco use Diastolic dysfunction (EF 60%, TTE 2018) Hypertension Peripheral Vascular Disease as per records -IV Enalaprilat for blood pressure given while in the hospital, can consider lisinopril on discharge in context of blood pressure and diabetes discharge medication of [facility] [address], [place] of senna to stimulate bowel movements, nicotine patch to quit tobacco, lisinopril 5 mg daily for blood pressure (advised patient to minimize narcotic pain medication in the future and that if he takes narcotic pain medication, he should be also concurrently on senna daily to prevent narcotic-induced constipation) avoid CPAP until all bowel symptoms resolve other appointments 06/23/2020 12:00 PM Provider Shannan Ventura MD Department Internal Medicine [facility] 08/25/2020 10:20 AM Provider Shannan Ventura MD Department Internal Medicine [facility] Total Time Total Time Spent Total Time Spent (In Minutes): 40 minutes Total Time Includes: Examination of the Patient, Discharge Planning, Medication Reconciliation and Communication With Other Providers Discharge Plan Discharge Items Patient Disposition: Home - Self-Care Reason For Visit: TRANSIENT HYPOXEMIA, SBO Discharge Diagnosis: SBO (small bowel obstruction) Hypertension 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 Condition on Discharge: Fair Activity: Per Instructions section Non-emergency contact: Primary Care Provider and Surgeon Call non-emergency contact if: you have any medication questions, your symptoms worsen, your pain is worsening, your pain is unusual for you and your pain is concerning for you Follow-up/Referrals: Shannan Ventura MD [Primary Care Provider] - Diet: Full liquid Addtl Attending Provider Instructions: discharge medication of [facility] [address], [place] of senna to stimulate bowel movements, nicotine patch to quit tobacco, lisinopril 5 mg daily for blood pressure (advised patient to minimize narcotic pain medication in the future and that if he takes narcotic pain medication, he should be also concurrently on senna daily to prevent narcotic-induced constipation) discharge to home, patient is encouraged to have full liquid diet for now until follow up with general surgery Dr. Plasencia Patient should make appointment to follow up (call [phone]) with general surgery Dr. Plasencia in 2 weeks avoid CPAP until all bowel symptoms resolve other appointments 06/23/2020 12:00 PM Provider Shannan Ventura MD Department Internal [facility] 08/25/2020 10:20 AM Provider Shannan Ventuar MD Department Internal Medicine [facility] Pending Studies at Discharge: No Studies:: Patient has made bowel movements but KUB on 06/16/2020 with Persistent moderate dilatation of numerous small bowel loops is noted. Loops measure up to 5.1 cm in caliber. There is gas within the transverse colon and descending colon Stand-Alone Forms: StartSampling, Smoking Cessation Medications and DC Order Prescriptions: New nicotine [Nicoderm CQ] 21 mg/24 hr Patch 24 Hour 21 mg transdermal QAM 30 Days Qty: 30 RF: 0 sennosides [Senokot] 8.6 mg Tablet 8.6 mg PO BID 30 Days Qty: 60 RF: 0 lisinopril 5 mg tablet 5 mg PO DAILY 30 Days Qty: 30 RF: 0 Continued atorvastatin 40 mg tablet 40 mg PO DAILY RF: 0 aspirin 325 mg Tablet 325 mg PO DAILY RF: 0 meloxicam 15 mg tablet 15 mg PO DAILY RF: 0 ondansetron HCl 4 mg tablet 4 mg PO DIRECTED PRN (Reason: Nausea) RF: 0 doxazosin 8 mg tablet 8 mg PO HS RF: 0 doxycycline monohydrate 100 mg capsule 100 mg PO QAM RF: 0 pantoprazole 40 mg tablet,delayed release (DR/EC) 40 mg PO DAILY RF: 0 budesonide [Pulmicort] 0.5 mg/2 mL Suspension For Nebulization 0.5 mg INHALATION BID PRN (Reason: Shortness Of Breath Or Wheezing) RF: 0 Discontinued hydrocodone-acetaminophen 7.5-325 mg tablet 1 tab PO Q6H PRN (Reason: Pain) RF: 0 Discharge Orders: Discharge Order (Routine); Ordered 06/16/20 Ordered By: Vel Hong/Other Patient Handouts: Prediabetes, A1C Admission Data Admit Date/Time: 06/14/20 01:24 Attending Provider: Vel Tejada Admit Provider: Bruce Dodd Primary Care Provider: Shannan Ventura Other Providers: Ani Plasencia
== END 2020-06-16 16:50 | disposition home or self-care (01) | DRG 390 ==
LOC: ED 20:52 → SUATTDRO 06-14 01:24 → 2W 06-14 01:24